=== PATIENT | male | born 1945 | race Caucasian/White ===

== ENCOUNTER → 2016-08-24 | Outpatient (RCR) | payer MEDICARE, MEDICAID ==
--- OUTSIDE RECORDS SUMMARY | 2016-05-26 12:56 | XMS REPORT | Continuity of Care Document ---
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 [id number] Ana Dinero 18 Self / Same As Patient Advance Directives Directive Response Recorded Date/Time Advance Directives No 03/11/16 9:00am Health Care Power of Poly Operator No 03/11/16 9:00am Organ Donor No 03/11/16 9:00am Resuscitation Status Full Code 03/11/16 9:00am Problems No problem information available. Medications Current Home Medications Medication Dose Units Route Directions Days/Qty Instructions Start Date Atorvastatin Calcium 40 Mg 40 Mg Oral Daily 03/10/16 Ramipril 2.5 Mg 2.5 Mg Oral Daily 03/10/16 Warfarin Sodium 3 Mg 3 Mg Oral Daily 03/10/16 Digoxin 125 Mcg 125 Mcg Oral Daily 03/10/16 Metoprolol Succinate 25 Mg 25 Mg Oral Daily 03/10/16 Aspirin 81 Mg 81 Mg Oral Daily 03/10/16 Hydrocodone/Acetaminophen 1 Each 1-2 Tab Oral Every 4HRS as needed for More Severe Pain 40 03/11/16 Social History Social History Problem Response Recorded Date/Time Alcohol Use Past History 03/11/2016 9:00am Recreational Drug Use No 03/11/2016 9:00am Recent Foreign Travel No 03/11/2016 9:35am Recent Infectious Disease Exposure No 03/11/2016 9:35am Hospitalization with Isolation Denies 03/11/2016 12:52pm Sexually Transmitted Disease No 03/11/2016 9:00am HIV/AIDS No 03/11/2016 9:00am Smoking Status Current Everyday Smoker 03/11/2016 9:00am Type Used Cigars 03/11/2016 12:52pm Query Response Start Date Stop Date Smoking Status Current Everyday Smoker Hospital Discharge Instructions No hospital discharge instructions. Plan of Care Discharge Date 03/11/16 12:40pm Instructions/Education Provided ANESTHESIA INSTRUCTIONS POSTOP DR. PERSAUD-NECK SURGERY DR. PERSAUD-WOUND CARE Prescriptions See Medication Section Functional Status No functional status results. Allergies, Adverse Reactions, Alerts No known allergies. Immunizations No immunization records. Vital Signs Acute Vital Signs Vital Response Date/Time Temperature (Fahrenheit) 97.6 degrees F (97.6 - 99.5) 03/11/2016 12:40pm Temperature (Calculated Celsius) 36.01622 degrees C (36.4 - 37.5) 03/11/2016 12:40pm Temperature Source Temporal 03/11/2016 12:40pm Pulse Rate (adult) 79 bpm (60 - 90) 03/11/2016 12:40pm Respiratory Rate 18 bpm (12 - 24) 03/11/2016 12:40pm O2 Sat by Pulse Oximetry 94 % (88 - 100) 03/11/2016 12:40pm Blood Pressure 96/61 mm Hg 03/11/2016 12:40pm Blood Pressure Mean 77 mm Hg 03/11/2016 9:00am Blood Pressure 96/61 mm Hg 03/11/2016 12:40pm Pain Numeric Pain Scale 0-No Pain 03/11/2016 12:40pm Pain Intensity 0 03/11/2016 12:40pm Height (Feet) 5 feet 03/11/2016 9:00am Height (Inches) 7.00 inches 03/11/2016 9:00am Height (Calculated Centimeters) 170.282209 cm 03/11/2016 9:00am Weight (Pounds) 150 pounds 03/11/2016 9:00am Weight (Ounces) 0.0 oz 03/11/2016 9:00am Weight (Calculated Grams) 89759.856 gm 03/11/2016 9:00am Weight (Calculated Kilograms) 68.239367 kilograms 03/11/2016 9:00am Calculated BMI 23.5 03/11/2016 9:00am Results Pending Laboratory Results Test Name Collection Date/Time Procedures Procedure Status Date Provider(s) Excision of lesion Completed 03/11/16 JASPER PERSAUD MD Tracing only of electrocardiogram Active 03/10/16 JASPER PERSAUD MD Encounters Encounter Location Arrival/Admit Date Discharge/Depart Date Attending Provider Departed [facility] 03/11/16 8:47am 12:40pm JASPER PERSAUD MD Departed Clinic [facility] 03/10/16 12:53pm 03/10/16 2: 43pm JASPER PERSAUD MD
[2016-05-26 13:33] LABS: BASOPHILS % (AUTO) 0 % (0-10); EOSINOPHILS # (AUTO) 0.1 10^3/uL (0.0-0.3); EOSINOPHILS % (AUTO) 1 % (0-10); LYMPHOCYTES # (AUTO) 0.6 X 10^3 (1.0-4.0); LYMPHOCYTES % (AUTO) 14 % (12-44); MEAN CORPUSCULAR HEMOGLOBIN 27 PG (25-34); MEAN CORPUSCULAR HGB CONC 32 G/DL (32-36); MEAN CORPUSCULAR VOLUME 84 FL (80-99); MEAN PLATELET VOLUME 9.9 FL (7.4-10.4); MONOCYTES # (AUTO) 0.9 X 10^3 (0.0-1.0); MONOCYTES % (AUTO) 21 % (0-12); NEUTROPHILS # (AUTO) 2.9 X 10^3 (1.8-7.8); NEUTROPHILS % (AUTO) 64 % (42-75); PLATELET COUNT 193 10^3/uL (130-400); RED BLOOD COUNT 4.06 10^6/uL (4.35-5.85); RED CELL DISTRIBUTION WIDTH 17.5 % (10.0-14.5); WHITE BLOOD COUNT 4.6 10^3/uL (4.3-11.0)
[2016-05-26 13:59] LABS: ALANINE AMINOTRANSFERASE 10 U/L (0-55); ALBUMIN 3.6 G/DL (3.2-4.5); ANION GAP 12 MMOL/L (5-14); ASPARTATE AMINO TRANSFERASE 17 U/L (5-34); BILIRUBIN,TOTAL 0.3 MG/DL (0.1-1.0); BLOOD UREA NITROGEN 24 MG/DL (7-18); BUN/CREATININE RATIO 22; CALCIUM 9.1 MG/DL (8.5-10.1); CARBON DIOXIDE 21 MMOL/L (21-32); CHLORIDE 107 MMOL/L (98-107); GFR ESTIMATED > 60; GLUCOSE 121 MG/DL (70-105); LACTATE DEHYDROGENASE 271 U/L (125-220); POTASSIUM 4.2 MMOL/L (3.6-5.0); SODIUM 140 MMOL/L (135-145); TOTAL PROTEIN 6.4 G/DL (6.4-8.2); URIC ACID 7.3 MG/DL (2.6-7.2)
[2016-06-01 11:54] LABS: BASOPHILS % (AUTO) 0 % (0-10); EOSINOPHILS % (AUTO) 1 % (0-10); LYMPHOCYTES # (AUTO) 0.2 X 10^3 (1.0-4.0); LYMPHOCYTES % (AUTO) 5 % (12-44); MEAN CORPUSCULAR HEMOGLOBIN 27 PG (25-34); MEAN CORPUSCULAR HGB CONC 32 G/DL (32-36); MEAN CORPUSCULAR VOLUME 84 FL (80-99); MEAN PLATELET VOLUME 9.7 FL (7.4-10.4); MONOCYTES # (AUTO) 0.5 X 10^3 (0.0-1.0); MONOCYTES % (AUTO) 10 % (0-12); NEUTROPHILS # (AUTO) 4.2 X 10^3 (1.8-7.8); NEUTROPHILS % (AUTO) 84 % (42-75); PLATELET COUNT 170 10^3/uL (130-400); RED BLOOD COUNT 3.79 10^6/uL (4.35-5.85); RED CELL DISTRIBUTION WIDTH 17.6 % (10.0-14.5)
[2016-06-01 12:26] LABS: ALANINE AMINOTRANSFERASE 14 U/L (0-55); ALBUMIN 3.1 G/DL (3.2-4.5); ANION GAP 11 MMOL/L (5-14); ASPARTATE AMINO TRANSFERASE 20 U/L (5-34); BILIRUBIN,TOTAL 0.3 MG/DL (0.1-1.0); BLOOD UREA NITROGEN 16 MG/DL (7-18); BUN/CREATININE RATIO 19; CALCIUM 8.3 MG/DL (8.5-10.1); CARBON DIOXIDE 22 MMOL/L (21-32); CHLORIDE 107 MMOL/L (98-107); CREATININE SERUM 0.84 MG/DL (0.60-1.30); GFR ESTIMATED > 60; GLUCOSE 125 MG/DL (70-105); MAGNESIUM 1.7 MG/DL (1.8-2.4); POTASSIUM 3.9 MMOL/L (3.6-5.0); SODIUM 140 MMOL/L (135-145); TOTAL PROTEIN 5.4 G/DL (6.4-8.2); URIC ACID 6.2 MG/DL (2.6-7.2)
[2016-06-01 14:52] LABS: %SAT TOTAL IRON BINDING CAPIC 9 % (15-50); TIBC 194 ug/dL (280-380)
[2016-06-01 15:16] LABS: UIBC 176 ug/dL (55-450)
[2016-06-02 08:06] LABS: FERRITIN 396 ng/mL (25-300)
[2016-06-09 15:07] LABS: BASOPHILS % (AUTO) 0 % (0-10); EOSINOPHILS % (AUTO) 1 % (0-10); LYMPHOCYTES # (AUTO) 0.4 X 10^3 (1.0-4.0); LYMPHOCYTES % (AUTO) 11 % (12-44); MEAN CORPUSCULAR HEMOGLOBIN 27 PG (25-34); MEAN CORPUSCULAR HGB CONC 32 G/DL (32-36); MEAN CORPUSCULAR VOLUME 84 FL (80-99); MEAN PLATELET VOLUME 9.9 FL (7.4-10.4); MONOCYTES # (AUTO) 0.7 X 10^3 (0.0-1.0); MONOCYTES % (AUTO) 24 % (0-12); NEUTROPHILS % (AUTO) 64 % (42-75); PLATELET COUNT 187 10^3/uL (130-400); RED BLOOD COUNT 3.97 10^6/uL (4.35-5.85); RED CELL DISTRIBUTION WIDTH 18.2 % (10.0-14.5); WHITE BLOOD COUNT 3.1 10^3/uL (4.3-11.0)
[2016-06-09 16:04] LABS: ALANINE AMINOTRANSFERASE 13 U/L (0-55); ALBUMIN 3.4 G/DL (3.2-4.5); ANION GAP 6 MMOL/L (5-14); ASPARTATE AMINO TRANSFERASE 18 U/L (5-34); BILIRUBIN,TOTAL 0.3 MG/DL (0.1-1.0); BLOOD UREA NITROGEN 14 MG/DL (7-18); BUN/CREATININE RATIO 15; CALCIUM 8.9 MG/DL (8.5-10.1); CARBON DIOXIDE 30 MMOL/L (21-32); CHLORIDE 105 MMOL/L (98-107); CREATININE SERUM 0.95 MG/DL (0.60-1.30); GFR ESTIMATED > 60; GLUCOSE 120 MG/DL (70-105); MAGNESIUM 1.7 MG/DL (1.8-2.4); POTASSIUM 4.2 MMOL/L (3.6-5.0); SODIUM 141 MMOL/L (135-145); TOTAL PROTEIN 5.9 G/DL (6.4-8.2); URIC ACID 5.6 MG/DL (2.6-7.2)
[2016-06-16 09:07] LABS: BASOPHILS % (AUTO) 1 % (0-10); EOSINOPHILS # (AUTO) 0.1 10^3/uL (0.0-0.3); EOSINOPHILS % (AUTO) 1 % (0-10); LYMPHOCYTES # (AUTO) 0.8 X 10^3 (1.0-4.0); LYMPHOCYTES % (AUTO) 19 % (12-44); MEAN CORPUSCULAR HEMOGLOBIN 27 PG (25-34); MEAN CORPUSCULAR HGB CONC 32 G/DL (32-36); MEAN CORPUSCULAR VOLUME 83 FL (80-99); MEAN PLATELET VOLUME 9.7 FL (7.4-10.4); MONOCYTES % (AUTO) 23 % (0-12); NEUTROPHILS # (AUTO) 2.4 X 10^3 (1.8-7.8); NEUTROPHILS % (AUTO) 56 % (42-75); PLATELET COUNT 188 10^3/uL (130-400); RED BLOOD COUNT 4.37 10^6/uL (4.35-5.85); WHITE BLOOD COUNT 4.2 10^3/uL (4.3-11.0)
[2016-06-16 09:42] LABS: ALANINE AMINOTRANSFERASE 13 U/L (0-55); ALBUMIN 3.6 G/DL (3.2-4.5); ANION GAP 8 MMOL/L (5-14); ASPARTATE AMINO TRANSFERASE 19 U/L (5-34); BILIRUBIN,TOTAL 0.3 MG/DL (0.1-1.0); BLOOD UREA NITROGEN 12 MG/DL (7-18); BUN/CREATININE RATIO 14; CALCIUM 9.4 MG/DL (8.5-10.1); CARBON DIOXIDE 28 MMOL/L (21-32); CHLORIDE 104 MMOL/L (98-107); CREATININE SERUM 0.88 MG/DL (0.60-1.30); GFR ESTIMATED > 60; GLUCOSE 114 MG/DL (70-105); MAGNESIUM 1.9 MG/DL (1.8-2.4); POTASSIUM 4.8 MMOL/L (3.6-5.0); SODIUM 140 MMOL/L (135-145); TOTAL PROTEIN 6.3 G/DL (6.4-8.2); URIC ACID 5.2 MG/DL (2.6-7.2)
[2016-06-23 13:04] LABS: BASOPHILS % (AUTO) 0 % (0-10); EOSINOPHILS # (AUTO) 0.1 10^3/uL (0.0-0.3); EOSINOPHILS % (AUTO) 1 % (0-10); LYMPHOCYTES % (AUTO) 28 % (12-44); MEAN CORPUSCULAR HEMOGLOBIN 27 PG (25-34); MEAN CORPUSCULAR HGB CONC 33 G/DL (32-36); MEAN CORPUSCULAR VOLUME 83 FL (80-99); MEAN PLATELET VOLUME 9.5 FL (7.4-10.4); MONOCYTES # (AUTO) 1.1 X 10^3 (0.0-1.0); MONOCYTES % (AUTO) 15 % (0-12); NEUTROPHILS # (AUTO) 4.2 X 10^3 (1.8-7.8); NEUTROPHILS % (AUTO) 57 % (42-75); PLATELET COUNT 192 10^3/uL (130-400); RED BLOOD COUNT 4.58 10^6/uL (4.35-5.85); RED CELL DISTRIBUTION WIDTH 18.2 % (10.0-14.5); WHITE BLOOD COUNT 7.3 10^3/uL (4.3-11.0)
[2016-06-23 13:28] LABS: ALANINE AMINOTRANSFERASE 12 U/L (0-55); ALBUMIN 3.4 G/DL (3.2-4.5); ANION GAP 6 MMOL/L (5-14); ASPARTATE AMINO TRANSFERASE 18 U/L (5-34); BILIRUBIN,TOTAL 0.3 MG/DL (0.1-1.0); BLOOD UREA NITROGEN 14 MG/DL (7-18); BUN/CREATININE RATIO 15; CALCIUM 8.8 MG/DL (8.5-10.1); CARBON DIOXIDE 28 MMOL/L (21-32); CHLORIDE 105 MMOL/L (98-107); CREATININE SERUM 0.92 MG/DL (0.60-1.30); GFR ESTIMATED > 60; GLUCOSE 135 MG/DL (70-105); POTASSIUM 4.2 MMOL/L (3.6-5.0); SODIUM 139 MMOL/L (135-145); TOTAL PROTEIN 6.2 G/DL (6.4-8.2); URIC ACID 5.1 MG/DL (2.6-7.2)
[2016-06-30 10:14] LABS: BASOPHILS % (AUTO) 1 % (0-10); EOSINOPHILS # (AUTO) 0.1 10^3/uL (0.0-0.3); EOSINOPHILS % (AUTO) 1 % (0-10); LYMPHOCYTES # (AUTO) 1.1 X 10^3 (1.0-4.0); LYMPHOCYTES % (AUTO) 23 % (12-44); MEAN CORPUSCULAR HEMOGLOBIN 27 PG (25-34); MEAN CORPUSCULAR HGB CONC 32 G/DL (32-36); MEAN CORPUSCULAR VOLUME 83 FL (80-99); MEAN PLATELET VOLUME 9.4 FL (7.4-10.4); MONOCYTES # (AUTO) 0.7 X 10^3 (0.0-1.0); MONOCYTES % (AUTO) 16 % (0-12); NEUTROPHILS # (AUTO) 2.8 X 10^3 (1.8-7.8); NEUTROPHILS % (AUTO) 60 % (42-75); PLATELET COUNT 225 10^3/uL (130-400); RED CELL DISTRIBUTION WIDTH 17.9 % (10.0-14.5); WHITE BLOOD COUNT 4.8 10^3/uL (4.3-11.0)
[2016-06-30 10:59] LABS: ALANINE AMINOTRANSFERASE 16 U/L (0-55); ALBUMIN 3.6 G/DL (3.2-4.5); ANION GAP 9 MMOL/L (5-14); ASPARTATE AMINO TRANSFERASE 21 U/L (5-34); BILIRUBIN,TOTAL 0.4 MG/DL (0.1-1.0); BLOOD UREA NITROGEN 13 MG/DL (7-18); BUN/CREATININE RATIO 14; CARBON DIOXIDE 27 MMOL/L (21-32); CHLORIDE 104 MMOL/L (98-107); CREATININE SERUM 0.92 MG/DL (0.60-1.30); GFR ESTIMATED > 60; GLUCOSE 120 MG/DL (70-105); POTASSIUM 3.8 MMOL/L (3.6-5.0); SODIUM 140 MMOL/L (135-145); TOTAL PROTEIN 6.6 G/DL (6.4-8.2)
[2016-07-08 09:03] LABS: BASOPHILS % (AUTO) 0 % (0-10); EOSINOPHILS % (AUTO) 0 % (0-10); LYMPHOCYTES # (AUTO) 1.5 X 10^3 (1.0-4.0); LYMPHOCYTES % (AUTO) 26 % (12-44); MEAN CORPUSCULAR HEMOGLOBIN 27 PG (25-34); MEAN CORPUSCULAR HGB CONC 33 G/DL (32-36); MEAN CORPUSCULAR VOLUME 82 FL (80-99); MEAN PLATELET VOLUME 10.3 FL (7.4-10.4); MONOCYTES # (AUTO) 1.6 X 10^3 (0.0-1.0); MONOCYTES % (AUTO) 29 % (0-12); NEUTROPHILS # (AUTO) 2.5 X 10^3 (1.8-7.8); NEUTROPHILS % (AUTO) 45 % (42-75); PLATELET COUNT 184 10^3/uL (130-400); RED BLOOD COUNT 4.21 10^6/uL (4.35-5.85); RED CELL DISTRIBUTION WIDTH 17.3 % (10.0-14.5); WHITE BLOOD COUNT 5.5 10^3/uL (4.3-11.0)
[2016-07-08 09:36] LABS: ALANINE AMINOTRANSFERASE 7 U/L (0-55); ALBUMIN 3.3 G/DL (3.2-4.5); ANION GAP 12 MMOL/L (5-14); ASPARTATE AMINO TRANSFERASE 16 U/L (5-34); BILIRUBIN,TOTAL 0.9 MG/DL (0.1-1.0); BLOOD UREA NITROGEN 20 MG/DL (7-18); BUN/CREATININE RATIO 20; CALCIUM 8.9 MG/DL (8.5-10.1); CARBON DIOXIDE 22 MMOL/L (21-32); CHLORIDE 102 MMOL/L (98-107); GFR ESTIMATED > 60; GLUCOSE 100 MG/DL (70-105); SODIUM 136 MMOL/L (135-145); TOTAL PROTEIN 6.2 G/DL (6.4-8.2)
[2016-07-14 09:36] LABS: BASOPHILS % (AUTO) 0 % (0-10); EOSINOPHILS % (AUTO) 1 % (0-10); LYMPHOCYTES # (AUTO) 1.6 X 10^3 (1.0-4.0); LYMPHOCYTES % (AUTO) 32 % (12-44); MEAN CORPUSCULAR HEMOGLOBIN 27 PG (25-34); MEAN CORPUSCULAR HGB CONC 32 G/DL (32-36); MEAN CORPUSCULAR VOLUME 84 FL (80-99); MONOCYTES # (AUTO) 0.8 X 10^3 (0.0-1.0); MONOCYTES % (AUTO) 16 % (0-12); NEUTROPHILS # (AUTO) 2.5 X 10^3 (1.8-7.8); NEUTROPHILS % (AUTO) 51 % (42-75); PLATELET COUNT 228 10^3/uL (130-400); RED BLOOD COUNT 4.32 10^6/uL (4.35-5.85); RED CELL DISTRIBUTION WIDTH 17.6 % (10.0-14.5)
[2016-07-14 10:39] LABS: ALANINE AMINOTRANSFERASE 12 U/L (0-55); ALBUMIN 3.1 G/DL (3.2-4.5); ANION GAP 9 MMOL/L (5-14); ASPARTATE AMINO TRANSFERASE 22 U/L (5-34); BILIRUBIN,TOTAL 0.3 MG/DL (0.1-1.0); BLOOD UREA NITROGEN 8 MG/DL (7-18); BUN/CREATININE RATIO 10; CARBON DIOXIDE 25 MMOL/L (21-32); CHLORIDE 107 MMOL/L (98-107); CREATININE SERUM 0.82 MG/DL (0.60-1.30); GFR ESTIMATED > 60; GLUCOSE 109 MG/DL (70-105); POTASSIUM 4.1 MMOL/L (3.6-5.0); SODIUM 141 MMOL/L (135-145); TOTAL PROTEIN 5.6 G/DL (6.4-8.2)
[2016-07-21 13:11] LABS: BASOPHILS % (AUTO) 0 % (0-10); EOSINOPHILS # (AUTO) 0.1 10^3/uL (0.0-0.3); EOSINOPHILS % (AUTO) 1 % (0-10); LYMPHOCYTES % (AUTO) 22 % (12-44); MEAN CORPUSCULAR HEMOGLOBIN 27 PG (25-34); MEAN CORPUSCULAR HGB CONC 32 G/DL (32-36); MEAN CORPUSCULAR VOLUME 84 FL (80-99); MEAN PLATELET VOLUME 10.1 FL (7.4-10.4); MONOCYTES % (AUTO) 11 % (0-12); NEUTROPHILS # (AUTO) 6.1 X 10^3 (1.8-7.8); NEUTROPHILS % (AUTO) 67 % (42-75); PLATELET COUNT 234 10^3/uL (130-400); RED BLOOD COUNT 4.33 10^6/uL (4.35-5.85); RED CELL DISTRIBUTION WIDTH 18.4 % (10.0-14.5); WHITE BLOOD COUNT 9.1 10^3/uL (4.3-11.0)
[2016-07-21 13:37] LABS: ALANINE AMINOTRANSFERASE 7 U/L (0-55); ALBUMIN 3.4 G/DL (3.2-4.5); ANION GAP 9 MMOL/L (5-14); ASPARTATE AMINO TRANSFERASE 17 U/L (5-34); BILIRUBIN,TOTAL 0.3 MG/DL (0.1-1.0); BLOOD UREA NITROGEN 15 MG/DL (7-18); BUN/CREATININE RATIO 17; CALCIUM 8.9 MG/DL (8.5-10.1); CARBON DIOXIDE 23 MMOL/L (21-32); CHLORIDE 104 MMOL/L (98-107); CREATININE SERUM 0.88 MG/DL (0.60-1.30); GFR ESTIMATED > 60; GLUCOSE 176 MG/DL (70-105); MAGNESIUM 1.9 MG/DL (1.8-2.4); SODIUM 136 MMOL/L (135-145); TOTAL PROTEIN 6.2 G/DL (6.4-8.2); URIC ACID 4.6 MG/DL (2.6-7.2)
[2016-07-30 09:26] LABS: BASOPHILS % (AUTO) 0 % (0-10); EOSINOPHILS # (AUTO) 0.1 10^3/uL (0.0-0.3); EOSINOPHILS % (AUTO) 2 % (0-10); LYMPHOCYTES # (AUTO) 2.4 X 10^3 (1.0-4.0); LYMPHOCYTES % (AUTO) 34 % (12-44); MEAN CORPUSCULAR HEMOGLOBIN 27 PG (25-34); MEAN CORPUSCULAR HGB CONC 32 G/DL (32-36); MEAN CORPUSCULAR VOLUME 85 FL (80-99); MEAN PLATELET VOLUME 9.4 FL (7.4-10.4); MONOCYTES % (AUTO) 14 % (0-12); NEUTROPHILS # (AUTO) 3.6 X 10^3 (1.8-7.8); NEUTROPHILS % (AUTO) 50 % (42-75); PLATELET COUNT 233 10^3/uL (130-400); RED BLOOD COUNT 4.24 10^6/uL (4.35-5.85); RED CELL DISTRIBUTION WIDTH 18.4 % (10.0-14.5); WHITE BLOOD COUNT 7.1 10^3/uL (4.3-11.0)
[2016-07-30 09:49] LABS: ALANINE AMINOTRANSFERASE < 6 U/L (0-55); ALBUMIN 3.3 G/DL (3.2-4.5); ANION GAP 10 MMOL/L (5-14); ASPARTATE AMINO TRANSFERASE 15 U/L (5-34); BILIRUBIN,TOTAL 0.3 MG/DL (0.1-1.0); BLOOD UREA NITROGEN 17 MG/DL (7-18); BUN/CREATININE RATIO 20; CALCIUM 9.2 MG/DL (8.5-10.1); CARBON DIOXIDE 25 MMOL/L (21-32); CHLORIDE 107 MMOL/L (98-107); CREATININE SERUM 0.83 MG/DL (0.60-1.30); GFR ESTIMATED > 60; GLUCOSE 105 MG/DL (70-105); LACTATE DEHYDROGENASE 294 U/L (125-220); SODIUM 142 MMOL/L (135-145); TOTAL PROTEIN 6.2 G/DL (6.4-8.2); URIC ACID 4.4 MG/DL (2.6-7.2)
[2016-08-11 10:39] LABS: BASOPHILS % (AUTO) 0 % (0-10); EOSINOPHILS # (AUTO) 0.1 10^3/uL (0.0-0.3); EOSINOPHILS % (AUTO) 2 % (0-10); LYMPHOCYTES # (AUTO) 1.2 X 10^3 (1.0-4.0); LYMPHOCYTES % (AUTO) 44 % (12-44); MEAN CORPUSCULAR HEMOGLOBIN 28 PG (25-34); MEAN CORPUSCULAR HGB CONC 33 G/DL (32-36); MEAN CORPUSCULAR VOLUME 85 FL (80-99); MEAN PLATELET VOLUME 9.7 FL (7.4-10.4); MONOCYTES # (AUTO) 1.2 X 10^3 (0.0-1.0); MONOCYTES % (AUTO) 42 % (0-12); NEUTROPHILS # (AUTO) 0.3 X 10^3 (1.8-7.8); NEUTROPHILS % (AUTO) 12 % (42-75); PLATELET COUNT 201 10^3/uL (130-400); RED BLOOD COUNT 4.02 10^6/uL (4.35-5.85); RED CELL DISTRIBUTION WIDTH 17.8 % (10.0-14.5); WHITE BLOOD COUNT 2.8 10^3/uL (4.3-11.0)
[2016-08-11 11:29] LABS: ALANINE AMINOTRANSFERASE 8 U/L (0-55); ALBUMIN 3.3 G/DL (3.2-4.5); ANION GAP 7 MMOL/L (5-14); ASPARTATE AMINO TRANSFERASE 15 U/L (5-34); BILIRUBIN,TOTAL 0.6 MG/DL (0.1-1.0); BLOOD UREA NITROGEN 17 MG/DL (7-18); BUN/CREATININE RATIO 19; CALCIUM 9.2 MG/DL (8.5-10.1); CARBON DIOXIDE 30 MMOL/L (21-32); CHLORIDE 104 MMOL/L (98-107); CREATININE SERUM 0.91 MG/DL (0.60-1.30); GFR ESTIMATED > 60; GLUCOSE 119 MG/DL (70-105); LACTATE DEHYDROGENASE 312 U/L (125-220); POTASSIUM 3.9 MMOL/L (3.6-5.0); SODIUM 141 MMOL/L (135-145); URIC ACID 2.9 MG/DL (2.6-7.2)
[2016-08-18 10:17] LABS: BASOPHILS % (AUTO) 0 % (0-10); EOSINOPHILS # (AUTO) 0.1 10^3/uL (0.0-0.3); EOSINOPHILS % (AUTO) 1 % (0-10); LYMPHOCYTES # (AUTO) 1.3 X 10^3 (1.0-4.0); LYMPHOCYTES % (AUTO) 17 % (12-44); MEAN CORPUSCULAR HEMOGLOBIN 27 PG (25-34); MEAN CORPUSCULAR HGB CONC 32 G/DL (32-36); MEAN CORPUSCULAR VOLUME 85 FL (80-99); MEAN PLATELET VOLUME 9.7 FL (7.4-10.4); MONOCYTES # (AUTO) 1.1 X 10^3 (0.0-1.0); MONOCYTES % (AUTO) 13 % (0-12); NEUTROPHILS # (AUTO) 5.4 X 10^3 (1.8-7.8); NEUTROPHILS % (AUTO) 69 % (42-75); PLATELET COUNT 235 10^3/uL (130-400); RED BLOOD COUNT 4.26 10^6/uL (4.35-5.85); RED CELL DISTRIBUTION WIDTH 17.6 % (10.0-14.5); WHITE BLOOD COUNT 7.9 10^3/uL (4.3-11.0)
[2016-08-18 10:49] LABS: ALANINE AMINOTRANSFERASE 7 U/L (0-55); ALBUMIN 3.3 G/DL (3.2-4.5); ANION GAP 9 MMOL/L (5-14); ASPARTATE AMINO TRANSFERASE 22 U/L (5-34); BILIRUBIN,TOTAL 0.3 MG/DL (0.1-1.0); BLOOD UREA NITROGEN 21 MG/DL (7-18); BUN/CREATININE RATIO 24; CARBON DIOXIDE 26 MMOL/L (21-32); CHLORIDE 105 MMOL/L (98-107); CREATININE SERUM 0.87 MG/DL (0.60-1.30); GFR ESTIMATED > 60; GLUCOSE 100 MG/DL (70-105); LACTATE DEHYDROGENASE 461 U/L (125-220); SODIUM 140 MMOL/L (135-145); TOTAL PROTEIN 5.9 G/DL (6.4-8.2); URIC ACID 2.9 MG/DL (2.6-7.2)
[~2016-08-24] VITALS: Ht 170.2 cm; Wt 61.7 kg
[~2016-08-24] MED LIST: ACETAMINOPHEN 325 MG TAB (TYLENOL) CANCER CTR PO PRN; ACETAMINOPHEN 500 MG TAB (TYLENOL) CANCER CTR PO PRN; ACYC200C PO; ALLO300T2 PO; ASPI-586 PO; ATOR40TA PO; BENDAMUSTINE HCL 150 MG in NS (IVPB) CANCER CENTER 50 ML IV SCH; BENDAMUSTINE HCL 160 MG in NS (IVPB) CANCER CENTER 50 ML IV SCH; CHEMO PO; CYCLOPHOSPHAMIDE INJECTION 1,000 MG in NS (IVPB) CANCER CENTER 250 ML IV SCH; DIGO125T PO; DIGO125T18 PO; FAMO20TA45 PO; FAMOTIDINE 20MG/2ML IV (CANCER CTR) IV SCH; FLUC200T5 PO; FLUCONAZOLE 100 MG/50 ML 50 ML IV ONE; FLUCONAZOLE 100 MG/50 ML 50 ML IV SCH; HYDR-3812 PO; HYDR-3820 PO; MEPERIDINE (DEMEROL) INJ 50 MG/ML CANCER CTR IV PRN; METO-270 PO; NS (IVPB) CANCER CENTER 250 ML ONE; NS IV 1000 ML (CANCER CTR) IV SCH; OMEP20CA12 PO; OMEP20TA7 PO; ONDANSETRON MDV (CANCER CENTER 16 MG, DEXAMETHASONE PF INJ (CANCER C 12 MG in NS (IVPB)... IV SCH; OXYC5SOL19 PO; PALONOSETRON HCL 0.25 MG, DEXAMETHASONE PF INJ (CANCER C 12 MG in NS (IVPB) CANCER CENT... IV PRN; RAMI2.5C PO; SODIUM CHLORIDE IV SCH; WARF3TAB6 PO; [UNRECOGNIZED DRUG - OTHER] IV SCH; [UNRECOGNIZED DRUG - OTHER] IV SCH; cefTRIAXone 2,000 MG/NS 50 ML IVPB (CANCER CTR) IV ONE; diphenhydrAMINE 25 MG TAB (BENADRYL) CANCER CENTER PO SCH; riTUXimab 500 MG, riTUXimab FOR IV INJ CONC 100 MG in NS (IVPB) CANCER CENTER ONLY 140 ML IV SCH; riTUXimab 500 MG, riTUXimab FOR IV INJ CONC 100 MG in NS (IVPB) CANCER CENTER ONLY 150 ML IV SCH; riTUXimab 500 MG, riTUXimab FOR IV INJ CONC 200 MG in NS (IVPB) CANCER CENTER ONLY 150 ML IV SCH
== END | disposition home or self-care (01) ==
LOC: ONC 05-26 12:52
PROVIDERS: ATTEND Internal Medicine Hematology & Oncology
DX: Z51.0 Encounter for antineoplastic radiation therapy (principal); Z51.11 Encounter for antineoplastic chemotherapy; C83.11 Mantle cell lymphoma, lymph nodes of head, face, and neck; C44.320 Squamous cell carcinoma of skin of unspecified parts of face; D63.0 Anemia in neoplastic disease; F17.210 Nicotine dependence, cigarettes, uncomplicated; I25.10 Atherosclerotic heart disease of native coronary artery without angina pectoris; Z95.5 Presence of coronary angioplasty implant and graft; Z79.899 Other long term (current) drug therapy
CPT/HCPCS: 36415; 36591; 77300; 77301; 77332; 77334; 77338; 77470; 80053; 82728; 83540; 83615; 83735; 84550; 85025; 96361; 96365; 96366; 96367; 96375; 96409; 96411; 96413; 96417; 99213; 99215

== ENCOUNTER 2016-08-26 10:08 | Inpatient (IN) | payer MEDICARE, MEDICAID ==
[~2016-08-26] VITALS: Ht 170.2 cm; Wt 60.8 kg
[~2016-08-26 10:08] MED LIST changes: -ACETAMINOPHEN 325 MG TAB (TYLENOL) CANCER CTR PO PRN; -ACETAMINOPHEN 500 MG TAB (TYLENOL) CANCER CTR PO PRN; -ACYC200C PO; -BENDAMUSTINE HCL 150 MG in NS (IVPB) CANCER CENTER 50 ML IV SCH; -BENDAMUSTINE HCL 160 MG in NS (IVPB) CANCER CENTER 50 ML IV SCH; -CHEMO PO; -CYCLOPHOSPHAMIDE INJECTION 1,000 MG in NS (IVPB) CANCER CENTER 250 ML IV SCH; -FAMOTIDINE 20MG/2ML IV (CANCER CTR) IV SCH; -FLUC200T5 PO; -FLUCONAZOLE 100 MG/50 ML 50 ML IV ONE; -FLUCONAZOLE 100 MG/50 ML 50 ML IV SCH; -HYDR-3820 PO; -MEPERIDINE (DEMEROL) INJ 50 MG/ML CANCER CTR IV PRN; -NS (IVPB) CANCER CENTER 250 ML ONE; -NS IV 1000 ML (CANCER CTR) IV SCH; -OMEP20CA12 PO; -ONDANSETRON MDV (CANCER CENTER 16 MG, DEXAMETHASONE PF INJ (CANCER C 12 MG in NS (IVPB)... IV SCH; -OXYC5SOL19 PO; -PALONOSETRON HCL 0.25 MG, DEXAMETHASONE PF INJ (CANCER C 12 MG in NS (IVPB) CANCER CENT... IV PRN; -SODIUM CHLORIDE IV SCH; -[UNRECOGNIZED DRUG - OTHER] IV SCH; -[UNRECOGNIZED DRUG - OTHER] IV SCH; -cefTRIAXone 2,000 MG/NS 50 ML IVPB (CANCER CTR) IV ONE; -diphenhydrAMINE 25 MG TAB (BENADRYL) CANCER CENTER PO SCH; -riTUXimab 500 MG, riTUXimab FOR IV INJ CONC 100 MG in NS (IVPB) CANCER CENTER ONLY 140 ML IV SCH; -riTUXimab 500 MG, riTUXimab FOR IV INJ CONC 100 MG in NS (IVPB) CANCER CENTER ONLY 150 ML IV SCH; -riTUXimab 500 MG, riTUXimab FOR IV INJ CONC 200 MG in NS (IVPB) CANCER CENTER ONLY 150 ML IV SCH
--- OUTSIDE RECORDS SUMMARY | 2016-08-26 10:16 | XMS REPORT | Continuity of Care Document ---
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 Training Name Role Phone SUMAYA WING MD PCP Insurance Providers Payer Name Policy Number Subscriber Name Relationship [employer]ps [employer] [id number] Ana Dinero 18 Self / Same As Patient [facility] [id number] Ana Dinero 16 Self / Same As Patient Advance Directives Directive Response Recorded Date/Time Advance Directives No 03/11/16 9:00am Health Care Power of Air And Water Filler No 03/11/16 9:00am Organ Donor No 03/11/16 [...] - 99.5) 03/11/2016 12:40pm Temperature (Calculated Celsius) 36.52884 degrees C (36.4 - 37.5) 03/11/2016 12:40pm [...] 7.00 inches 03/11/2016 9:00am Height (Calculated Centimeters) 170.937101 cm 03/11/2016 9:00am Weight (Pounds) 150 pounds 03/11/2016 9:00am Weight (Ounces) 0.0 oz 03/11/2016 9:00am Weight (Calculated Grams) 19870.856 gm 03/11/2016 9:00am Weight (Calculated Kilograms) 68.508130 kilograms 03/11/2016 9:00am Calculated BMI 23.5 03/11/2016 9:00am Results Pending Laboratory Results Test Name Collection Date/Time Procedures Procedure Status Date Provider(s) Excision of lesion Completed 03/11/16 JASPER PERSAUD MD Tracing only of electrocardiogram Active 03/10/16 JASPER PERSAUD MD Encounters Encounter Location Arrival/Admit Date Discharge/Depart Date Attending Provider Departed [facility] 03/11/16 8:47am 12:40pm JASPER PERSAUD MD Departed Clinic [facility] 03/10/16 12:53pm 03/10/16 2: 43pm JASPER PERSAUD MD
[2016-08-26 11:00] LABS: BASOPHILS % (AUTO) 0 % (0-10); EOSINOPHILS % (AUTO) 0 % (0-10); LYMPHOCYTES # (AUTO) 1.5 X 10^3 (1.0-4.0); LYMPHOCYTES % (AUTO) 16 % (12-44); MEAN CORPUSCULAR HEMOGLOBIN 28 PG (25-34); MEAN CORPUSCULAR HGB CONC 33 G/DL (32-36); MEAN CORPUSCULAR VOLUME 86 FL (80-99); MEAN PLATELET VOLUME 10.2 FL (7.4-10.4); MONOCYTES # (AUTO) 0.8 X 10^3 (0.0-1.0); MONOCYTES % (AUTO) 9 % (0-12); NEUTROPHILS % (AUTO) 75 % (42-75); PLATELET COUNT 186 10^3/uL (130-400); RED BLOOD COUNT 3.79 10^6/uL (4.35-5.85); RED CELL DISTRIBUTION WIDTH 17.8 % (10.0-14.5); WHITE BLOOD COUNT 9.3 10^3/uL (4.3-11.0)
--- NOTE | 2016-08-26 11:15 | ED General ---
General Chief Complaint: General Problems/Pain Stated Complaint: RADIATION TREATMENT/THROAT SWELLING Nursing Triage Note: AMBULATED TO ROOM 08M WITH COMPLAINTS OF THROAT SWELLING ET STATES IT IS HARD TO DRINK AND BREATHE. STATES HE FEELS LIKE HE IS GETTING DEHYDRATED. STARTED ON RADIATION YESTERDAY. Nursing Sepsis Screen: No Definite Risk Source of Information: Patient Exam Limitations: No Limitations, Intoxication History of Present Illness Time Seen by Provider: 10:58 Initial Comments The patient is a 71-year-old white male who presents with a complaint of inability to swallow. He reports this b has been an increasing problem over the last month. He is been being treated for a mantle cell lymphoma. Previously he had been receiving chemotherapy with Dr. Vero MD as his oncologist. Yesterday he received his first dose of radiation to the area yesterday. He reported he was awake all night with pain. He is unable to swallow and has lost 40 pounds during this treatment program. He called the cancer center this morning with these complaints and was referred to the emergency room Associated Systoms: Loss of Appetite Malaise Weakness Allergies and Home Medications Allergies Coded Allergies: No Known Drug Allergies (Unverified , 07/23/16) Home Medications Aspirin 81 Mg Tablet.dr 81 MG PO DAILY (Reported) Digoxin 125 Mcg Tablet 125 MCG PO DAILY (Reported) Hydrocodone/Acetaminophen 1 Each Tablet #30 1-2 TAB PO 4-6HR PRN PRN PAIN Prescribed by: ALLYSSA FERGUSON on 07/26/16 1337 Omeprazole 20 Mg Tablet.dr 20 MG PO DAILY (Reported) Constitutional: no symptoms reported EENTM: hoarseness mouth pain mouth swelling throat pain throat swelling Respiratory: no symptoms reported Cardiovascular: no symptoms reported Gastrointestinal: dysphagia nausea Genitourinary: no symptoms reported Musculoskeletal: no symptoms reported Skin: no symptoms reported Psychiatric/Neurological: Depressed Hematologic/Lymphatic: See HPI Immunological/Allergic: see HPI Past Nqavezs-Vdxpti-Wnmqjv Hx Patient Social History Type Used: Cigars, Cigarettes Recent Foreign Travel: No Contact w/Someone Who Travel: No Recent Infectious Disease Expo: No Recent Hopitalizations: No Immunizations Up To Date Tetanus Booster (TDap): Less than 5yrs Seasonal Allergies Seasonal Allergies: No Surgeries HX Surgeries: Yes (SKIN CANCERS REMOVED, STENTS IN HEART x2, IN LEFT ARM x1, STENT IN ABDOMEN) Respiratory Hx Respiratory Disorders: Yes (RECENT SOB) Cardiovascular Hx Cardiac Disorders: Yes ( 2 STENTS IN HEART, A-FIB, CAD) Neurological Hx Neurological Disorders: Yes (POLYNEUROPATHY) Reproductive System Hx Reproductive Disorders: No Sexually Transmitted Disease: No HIV/AIDS: No Genitourinary Hx Genitourinary Disorders: No Gastrointestinal Hx Gastrointestinal Disorders: Yes Gastrointestinal Disorders: Gastroesophageal Reflux Musculoskeletal Hx Musculoskeletal Disorders: Yes Musculoskeletal Disorders: Arthritis Endocrine Hx Endocrine Disorders: No HEENT HX ENT Disorders: Yes (GLASSES, RIGHT EYE CATARCT) HEENT Disorders: Cataract Loss of Vision: Denies Hearing Impairment: Hard of Hearing Cancer Hx Cancer: Yes (MANTLE CELL LYMPHOMA, NON HODGKINS) Cancer: Skin, Lymphoma Psychosocial Hx Psychiatric Problems: Yes Behavioral Health Disorders: Sleep Difficulties Integumentary HX Skin/Integumentary Disorder: Yes (04-07-16 - RASH ON BACK - CHEMO ON THE 10TH ) Skin/Integumentary Disorders: Recent Skin Changes Blood Transfusions Hx Blood Disorders: No Adverse Reaction to a Blood Tr: No Family Medical History Family Medial History: Alcoholism G8 BROTHER Alzheimer's disease 19 MOTHER Aphasia Arthritis 19 FATHER 19 MOTHER G8 BROTHER Cardiovascular disease 19 FATHER 19 MOTHER G8 BROTHER G8 BROTHER Completed stroke 19 MOTHER Coronary thrombosis G8 BROTHER Deafness or hearing loss G8 BROTHER G8 BROTHER Glaucoma G8 BROTHER Myocardial infarction 19 FATHER Visual disorder 19 MOTHER Physical Exam Vital Signs Vital Sign - Last 12Hours 08/26/16 10:17 Temp 96.3 Pulse 65 Resp 18 B/P 146/69 Pulse Ox 98 Capillary Refill : Less Than 3 Seconds General Appearance: Moderate Distress Eyes: Bilateral Eye Normal Inspection HEENT: Other (the tongue is leathery cracked and dry with brown discoloration. There is a large mass intruding on the posterior pharynx from the left to the uvula. There is palpable tumor externally at the angle of the mandible to a sub- auricular location) Neck: Limited Range of Motion Respiratory: Decreased Breath Sounds Cardiovascular: Regular Rate, Rhythm No Edema No Gallop No JVD No Murmur Normal Peripheral Pulses Gastrointestinal: Other Back: Normal Inspection No CVA Tenderness No Vertebral Tenderness Extremity: Normal Capillary Refill Normal Inspection Normal Range of Motion Non Tender No Calf Tenderness No Pedal Edema Neurologic/Psychiatric: Alert Oriented x3 No Motor/Sensory Deficits Normal Mood/Affect Progress/Results/Core Measures Results/Orders Lab Results Laboratory Tests Test 1/5/17 10:50 Range/Units Alanine Aminotransferase (ALT/SGPT) 9 0-55 U/L Albumin 3.3 3.2-4.5 G/DL Alkaline Phosphatase 57 40-136 U/L Anion Gap 11 5-14 MMOL/L Aspartate Amino Transf (AST/SGOT) 21 5-34 U/L BUN/Creatinine Ratio 23 Basophils # (Auto) 0.0 0.0-0.1 10^3/uL Basophils (%) (Auto) 0 0-10 % Blood Urea Nitrogen 17 7-18 MG/DL Calcium Level 9.1 8.5-10.1 MG/DL Carbon Dioxide Level 26 21-32 MMOL/L Chloride Level 102 98-107 MMOL/L Creatinine 0.75 0.60-1.30 MG/DL Eosinophils # (Auto) 0.0 0.0-0.3 10^3/uL Eosinophils (%) (Auto) 0 0-10 % Estimat Glomerular Filtration Rate > 60 Glucose Level 98 70-105 MG/DL Hematocrit 33 L 40-54 % Hemoglobin 10.6 L 13.3-17.7 G/DL Lymphocytes # (Auto) 1.5 1.0-4.0 X 10^3 Lymphocytes (%) (Auto) 16 12-44 % Mean Corpuscular Hemoglobin 28 25-34 PG Mean Corpuscular Hemoglobin Concent 33 32-36 G/DL Mean Corpuscular Volume 86 80-99 FL Mean Platelet Volume 10.2 7.4-10.4 FL Monocytes # (Auto) 0.8 0.0-1.0 X 10^3 Monocytes (%) (Auto) 9 0-12 % Neutrophils # (Auto) 7.0 1.8-7.8 X 10^3 Neutrophils (%) (Auto) 75 42-75 % Platelet Count 186 130-400 10^3/uL Potassium Level 4.1 3.6-5.0 MMOL/L Red Blood Count 3.79 L 4.35-5.85 10^6/uL Red Cell Distribution Width 17.8 H 10.0-14.5 % Sodium Level 139 135-145 MMOL/L Total Bilirubin 0.5 0.1-1.0 MG/DL Total Protein 5.7 L 6.4-8.2 G/DL White Blood Count 9.3 4.3-11.0 10^3/uL My Orders Orders-JIMENA SANDY MD Cbc With Automated Diff (08/26/16 10:35) Comprehensive Metabolic Panel (08/26/16 10:35) Ua Culture If Indicated (08/26/16 10:35) Hydromorphone Injection (Dilaudid Inject (08/26/16 12:15) Vital Signs/I&O Vital Sign - Last 12Hours 08/26/16 10:17 Temp 96.3 Pulse 65 Resp 18 B/P 146/69 Pulse Ox 98 Blood Pressure Mean: 94 Departure Communication Progress Notes [id number] Pham. She is in [place] at the clinic today. She agreed that we would admit the patient for IV fluids. She wants him to have his scheduled radiation today. I have spoken to Dr. Gtz and he is arranging at the possibility of a PEG tube. Dr. Pham will see him this afternoon and determine whether she believes this to be necessary. Impression Impression: Primary Impression: Mantle cell lymphoma Disposition: ADMITTED INPATIENT Condition: Stable/Unchanged Decision to Admit Reason: Admit from ER (General) Decision to Admit/Date: Aug 26, 2016 Time/Decision to Admit Time: 12:21 Departure-Patient Inst. Referrals: SUMAYA WING MD (PCP/Family) Primary Care Physician JIMENA SANDY MD Aug 26, 2016 11:15
[2016-08-26 11:24] LABS: ALANINE AMINOTRANSFERASE 9 U/L (0-55); ALBUMIN 3.3 G/DL (3.2-4.5); ANION GAP 11 MMOL/L (5-14); ASPARTATE AMINO TRANSFERASE 21 U/L (5-34); BILIRUBIN,TOTAL 0.5 MG/DL (0.1-1.0); BLOOD UREA NITROGEN 17 MG/DL (7-18); BUN/CREATININE RATIO 23; CALCIUM 9.1 MG/DL (8.5-10.1); CARBON DIOXIDE 26 MMOL/L (21-32); CHLORIDE 102 MMOL/L (98-107); CREATININE SERUM 0.75 MG/DL (0.60-1.30); GFR ESTIMATED > 60; GLUCOSE 98 MG/DL (70-105); POTASSIUM 4.1 MMOL/L (3.6-5.0); SODIUM 139 MMOL/L (135-145); TOTAL PROTEIN 5.7 G/DL (6.4-8.2)
[2016-08-26] MEDS ORDERED: HYDROmorphone (DILAUDID) 2 MG/ML VIAL IVP ONE (12:15)
[2016-08-26] MEDS ORDERED: ACYC200C PO (12:19)
[2016-08-26] MEDS ORDERED: OXYC5SOL19 PO (12:19)
[2016-08-26] MEDS ORDERED: OMEP20CA12 PO (12:19)
[2016-08-26] MEDS ORDERED: DIGO125T PO (12:19)
[2016-08-26] MEDS ORDERED: ALLO300T2 PO (12:19)
[2016-08-26 13:05] VITALS: BP 161/71
[2016-08-26] MEDS ORDERED: LACTATED RINGERS 1,000 ML IV SCH ×2 (13:15→13:45)
[2016-08-26] MEDS ORDERED: HYDROmorphone (DILAUDID) 2 MG/ML VIAL IV PRN (13:45)
[2016-08-26] MEDS ORDERED: CATHETER FLUSH 10 ML SYR IV PRN (13:45)
[2016-08-26] MEDS ORDERED: ONDANSETRON 4 MG/2 ML (SDV) Z0FRAN IVP PRN (14:00)
--- NOTE | 2016-08-26 14:05 | Consultation ---
History of Present Illness History of Present Illness Patient Consulted On(oren/time) 08/26/16 13:56 Date of Admission 08/26/16 History of Present Illness This is a 71 year old male who was seen with Dr. Lagunas. Patient reports that about 3 months he developed bilateral masses near the cheek area. He reports that he seen Dr. Haile because they though he had an abscess and was started on abx. Patient reports that the abx did not help and the left side mass was then biopsied and found to be mantle call lymphoma. Patient says he then had a port placed to undergo chemotherapy and reports the the right side did improve however the left side has continued to increase in size. He reports that they did increase he chemotherapy dose but still yet the left side mass is still becoming larger. He reports that yesterday he received his first round of radiation. He reports that he was up all night with pain and is having difficulty eating and drinking. He reports that his dysphagia has gradually been becoming worse over the last 2 weeks but is worse today. He did call the cancer center this morning and was instructed to present to the ER. He reports that he does still continue to smoke. He denies any N/V as well as no diarrhea. He reports that he has had issues with constipation but says that he does take iron supplement. Allergies and Home Medications Allergies Coded Allergies: No Known Drug Allergies (Unverified , 07/23/16) Home Medications Acyclovir 200 Mg Capsule 200 MG PO DAILY (Reported) Allopurinol 300 Mg Tablet 300 MG PO DAILY (Reported) Aspirin 81 Mg Tablet. 81 MG PO DAILY (Reported) Digoxin 125 Mcg Tablet 125 MCG PO SuTuThSa (Reported) Digoxin 125 Mcg Tablet 250 MCG PO MoWeFr (Reported) Omeprazole 20 Mg Capsule.dr 20 MG PO DAILY (Reported) Oxycodone HCl 5 Mg/5 Ml Solution 5 ML PO Q6H PRN PRN PAIN (Reported) Past Cksmtih-Xmpkct-Znjgdm Hx Patient Social History Smoking Status: Current Everyday Smoker Type Used: Cigars Recent Foreign Travel: No Contact w/Someone Who Travel: No Recent Infectious Disease Expo: No Recent Hopitalizations: No Immunizations Up To Date Tetanus Booster (TDap): Less than 5yrs Seasonal Allergies Seasonal Allergies: No Surgeries HX Surgeries: Yes (SKIN CANCERS REMOVED, STENTS IN HEART x2, IN LEFT ARM x1, STENT IN ABDOMEN) Respiratory Hx Respiratory Disorders: Yes (RECENT SOB) Cardiovascular Hx Cardiac Disorders: Yes ( 2 STENTS IN HEART, A-FIB, CAD) Neurological Hx Neurological Disorders: Yes (POLYNEUROPATHY) Reproductive System Hx Reproductive Disorders: No Sexually Transmitted Disease: No HIV/AIDS: No Genitourinary Hx Genitourinary Disorders: No Gastrointestinal Hx Gastrointestinal Disorders: Yes Gastrointestinal Disorders: Gastroesophageal Reflux Musculoskeletal Hx Musculoskeletal Disorders: Yes Musculoskeletal Disorders: Arthritis Endocrine Hx Endocrine Disorders: No HEENT HX ENT Disorders: Yes (GLASSES, RIGHT EYE CATARCT) HEENT Disorders: Cataract Loss of Vision: Denies Hearing Impairment: Hard of Hearing Cancer Hx Cancer: Yes (MANTLE CELL LYMPHOMA, NON HODGKINS) Cancer: Skin, Lymphoma Psychosocial Hx Psychiatric Problems: Yes Behavioral Health Disorders: Sleep Difficulties Integumentary HX Skin/Integumentary Disorder: Yes (04-07-16 - RASH ON BACK - CHEMO ON THE 10TH ) Skin/Integumentary Disorders: Recent Skin Changes Blood Transfusions Hx Blood Disorders: No Adverse Reaction to a Blood Tr: No Family Medical History Family Medial History: Alcoholism G8 BROTHER Alzheimer's disease 19 MOTHER Aphasia Arthritis 19 FATHER 19 MOTHER G8 BROTHER Cardiovascular disease 19 FATHER 19 MOTHER G8 BROTHER G8 BROTHER Completed stroke 19 MOTHER Coronary thrombosis G8 BROTHER Deafness or hearing loss G8 BROTHER G8 BROTHER Glaucoma G8 BROTHER Myocardial infarction 19 FATHER Visual disorder 19 MOTHER Review of Systems-General Constitutional: malaise weakness weight loss EENTM: see HPI throat pain Respiratory: no symptoms reported Cardiovascular: no symptoms reported Gastrointestinal: constipationNo nausea, No vomiting Genitourinary: no symptoms reported Musculoskeletal: neck pain Skin: no symptoms reported Psychiatric/Neurological: No Symptoms Reported Physical Exam-General Problems Physical Exam Vital Signs Vital Sign - Last 12Hours 08/26/16 08/26/16 10:17 13:05 Temp 96.3 Pulse 65 Resp 18 B/P 146/69 Pulse Ox 98 O2 Delivery Room Air Capillary Refill : Less Than 3 Seconds General Appearance: WD/WN no apparent distress HEENT: PERRL/EOMI other (Tongue is cracked and dry with browinsh discoloration noted.) Neck: other (There is a mass noted of the left mandible area that extends to the prearicular area, this does extend toward the uvula. No redness or drainage noted. There is no pain with moderate palpation. ) Respiratory: no respiratory distress no accessory muscle use Cardiovascular: regular rate, rhythm no edema Gastrointestinal: normal bowel sounds non tender soft Back: normal inspection no CVA tenderness Extremities: normal range of motion non-tender normal inspection no pedal edema no calf tenderness normal capillary refill Neurologic/Psychiatric: alert normal mood/affect oriented x 3 Skin: normal color warm/dry Assessment/Plan Assessment/Plan Admission Diagnosis/Plan A 71 year old male with mantle cell lymphoma and dysphagia. IV fluids. IV nausea and IV pain medication. Clear liquid diet. NPO at 0200 on 08/27/16. Will schedule for EGD with PEG tube tomorrow. Copy Copies To 1: VERITO LAGUNAS MD Copies To 2: SUMAYA WING MD, DUSTIN L APRN Aug 26, 2016 14:05
--- NOTE | 2016-08-26 14:32 | Oncology History & Physical ---
Visit Information Visit Information Date of Admission Aug 26, 2016 at 12:34 Attending Physician Esther Mercado MD Admitting Physician Ruth Soni MD Chief Complaint pain over throat and neck. Difficulty swallow Interval History Mr. 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 He started his radiation to his left neck area yesterday and experienced increasing pain and swelling of the throat and the neck. He had not be able to sleep at all. He called cancer center in [place] this morning but I was at the [facility] today. Therefore, he was instructed to go ER. Dr. Monroy saw patient and decided to admitted the patient for pain control, IVF and possible PEG tube placement. He did not have any nausea at home but he had nausea right after the Dilaudid pain med at ER. No fever, chills. I consulted the patient on: 08/26/16 14:27 Constitutional: dizziness EENTM: mouth pain mouth swelling throat pain throat swelling Respiratory: phlegm Cardiovascular: no symptoms reported Gastrointestinal: nausea Psychiatric/Neurological: Anxiety Health Status Allergies Coded Allergies: No Known Drug Allergies (Unverified , 07/23/16) Home Medications Acyclovir (Acyclovir) 200 Mg Capsule 200 MG PO DAILY (Reported) Allopurinol (Allopurinol) 300 Mg Tablet 300 MG PO DAILY (Reported) Aspirin (Aspir 81) 81 Mg Tablet. 81 MG PO DAILY (Reported) Digoxin (Digox) 125 Mcg Tablet 125 MCG PO SuTuThSa (Reported) Digoxin (Digoxin) 125 Mcg Tablet 250 MCG PO MoWeFr (Reported) Omeprazole (Omeprazole) 20 Mg Capsule. 20 MG PO DAILY (Reported) Oxycodone HCl (Oxycodone HCl) 5 Mg/5 Ml Solution 5 ML PO Q6H PRN PRN PAIN ( Reported) JVX-Plhrdm-Chbysr Hx Patient Social History Alcohol Use: Denies Use Recreational Drug Use: No Smoking Status: Current Everyday Smoker Type Used: Cigars Recent Foreign Travel: No Contact w/other who traveled: No Recent Infectious Disease Expo: No Recent Hopitalizations: Yes Physical Abuse Screen: No Sexual Abuse: No Immunizations Up To Date Tetanus Booster (TDap): Less than 5yrs Family Medical History Family History: Alcoholism G8 BROTHER Alzheimer's disease 19 MOTHER Aphasia Arthritis 19 FATHER 19 MOTHER G8 BROTHER Cardiovascular disease 19 FATHER 19 MOTHER G8 BROTHER G8 BROTHER Completed stroke 19 MOTHER Coronary thrombosis G8 BROTHER Deafness or hearing loss G8 BROTHER G8 BROTHER Glaucoma G8 BROTHER Myocardial infarction 19 FATHER Visual disorder 19 MOTHER Data Review Labs Laboratory Tests 08/26/16 10:50 Laboratory Tests 08/26/16 10:50: Hematocrit 33L, Hemoglobin 10.6L, Red Blood Count 3.79L, Red Cell Distribution Width 17.8H, Total Protein 5.7L Physical Exam Vital Signs Vital Sign - Last 12Hours 08/26/16 08/26/16 10:17 13:05 Temp 96.3 Pulse 65 Resp 18 B/P 146/69 Pulse Ox 98 O2 Delivery Room Air Capillary Refill : Less Than 3 Seconds General Appearance: No Apparent Distress HEENT: PERRL/EOMI Tonsillar Enlargement (large tumor of the left cross midline with ulcerations) Neck: Limited Range of Motion Lymphadenopathy (L) Tender Lateral Respiratory: Chest Non Tender Lungs Clear No Accessory Muscle Use No Respiratory Distress Cardiovascular: Regular Rate, Rhythm No JVD Gastrointestinal: Non Tender Soft Extremity: Non Tender No Calf Tenderness No Pedal Edema Neurologic/Psychiatric: Alert Oriented x3 Impression & Plan Impression & Plan IMP: 1. Mantle cell lymphoma, CD 20 strong positive. Initial presentation of neck masses bilaterally and left tonsil mass near to the midline of the throat. s/p Treanda and Rituxine with great initial response, tumor shrinked about 80% by exam and CT scan05/2016. Then the tumor regrow after #5 cycle of Treanda and Rituxane. Treatment changed to PCR (Pantostatin, Cytoxan and Rituxan) 2015. Tumor was initially shrinking but then re-grow. I discussed with Dr Haney again and he started radiation treatment yesterday 08/25/16. I anticipate the tumor in his throat and left neck will reduce in size in a few days after the radiation treatment. In the meantime, we can give him IV pain meds and IV Clinimix for hydration and nutrition. 2. Dysphagia due to #1. I would HOLD OFF the PEG tube placement for now since I anticipate a short term problem. We can re-evaluated the situation next week. If he is still not able to take adequate PO, we can then consider PEG. 3. Weight loss 25-30 over 3-4 months due to #1 and #2. 4. h/o CAD and aFib, s/p cardiac stents. Off coumadin by Pt decision. 5. oral thrush. will start Diflucan IV 6. 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 Pt livers by himself and does not want to burden his family for his care. 9. MUG scan EF 46% 06/2016. Marginal cardiac function. Plan: 1. IV Clinimix 2. Change Dilaudid to IV morphine 3. Decadron and Zofran IV bid 4. HOLD off PEG tube placement. Appreciate Dr Gtz's input and help. 5. Continue daily radiation. 6. Diflucan IV 7. Anticipate short stay 2-3 days ESTHER MERCADO MD Aug 26, 2016 14:32
[2016-08-26 14:33] VITALS: BP 161/71
[2016-08-26] MEDS: ONDANSETRON 4 MG/2 ML (SDV) Z0FRAN IVP SCH ×2 (14:44→20:34)
[2016-08-26] MEDS ORDERED: FLU TRIvalent (5 YOA+) 2016-17 (AFLURIA) 0.5 ML IM ONE (14:45)
[2016-08-26] MEDS: DEXAMETHASONE 4 MG/ML SDV (DECADRON) IV SCH ×2 (14:45→20:34)
--- NOTE | 2016-08-26 15:44 | Progress Note-Standard ---
Standard Progress Note Progress Notes/Assess & Plan Progress/Assessment & Plan oncology input read and understand. will hold off on PEG for now in hopes of resolution tumor/edema with no oralpharygeal compromise and no dysphagia. VERITO LAGUNAS MD Aug 26, 2016 15:44
[2016-08-26] MEDS: FLUCONAZOLE 200 MG/100 ML 100 ML IV SCH (15:55)
[2016-08-26 16:23] VITALS: BP 105/58
[2016-08-26] MEDS: AA 4.25% W/LYTES IN D5W IV SOL 1,000 ML IV SCH ×2 (18:36→23:00)
[2016-08-26 19:49] LABS: BILIRUBIN,URINE NEGATIVE (NEGATIVE); KETONES,URINE 3+ (NEGATIVE); LEUKOCYTE ESTERASE ,URINE NEGATIVE (NEGATIVE); NITRITE,URINE NEGATIVE (NEGATIVE); PH,URINE 5 (5-9); PROTEIN,URINE 2+ (NEGATIVE); UROBILINOGEN,URINE 1 MG/DL (NORMAL)
[2016-08-26 20:00] VITALS: BP 149/73
[2016-08-26 20:01] LABS: SQUAMOUS EPITHELIAL CELL,UR 0-2 /HPF; WBC,URINE 0-2 /HPF
[2016-08-26] MEDS ORDERED: DEXAMETHASONE 4 MG/ML SDV (DECADRON) IV SCH (21:00)
[2016-08-27] VITALS: BP 135/79
[2016-08-27 05:17] VITALS: BP 148/75
[2016-08-27] MEDS: AA 4.25% W/LYTES IN D5W IV SOL 1,000 ML IV SCH ×3 (05:26→20:23)
[2016-08-27 08:27] VITALS: BP 134/65
[2016-08-27] MEDS: DEXAMETHASONE 4 MG/ML SDV (DECADRON) IV SCH ×2 (08:29→20:23)
[2016-08-27] MEDS: ONDANSETRON 4 MG/2 ML (SDV) Z0FRAN IVP SCH ×2 (08:30→20:22)
[2016-08-27] MEDS: FLUCONAZOLE 200 MG/100 ML 100 ML IV SCH (08:37)
[2016-08-27] MEDS: morphine INJ 4 MG/ML 1 ML (VIAL/SYRINGE) IVP PRN ×3 (09:10→20:23)
--- NOTE | 2016-08-27 09:42 | Oncology Progress Note ---
Subjective Subjective/Events-last exam Doing better, less pain. Able to talk and handle liquid-soft food. Had his radiation treatment today. Data Review Labs Laboratory Tests 08/26/16 10:50: Hematocrit 33L, Hemoglobin 10.6L, Red Blood Count 3.79L, Red Cell Distribution Width 17.8H, Total Protein 5.7L 08/26/16 19:45: Urine Ketones 3+H, Urine Mucus MODERATEH, Urine Protein 2+H, Urine Specific Street 1.025H Physical Exam Vital Signs Vital Sign - Last 12Hours 08/26/16 08/26/16 10:17 13:05 Temp 96.3 Pulse 65 Resp 18 B/P 146/69 Pulse Ox 98 O2 Delivery Room Air Capillary Refill : Less Than 3 Seconds General Appearance: No Apparent Distress HEENT: PERRL/EOMI Tonsillar Enlargement Other (tumor started slugh off) Neck: Lymphadenopathy (L) Tender Lateral Respiratory: Lungs Clear No Accessory Muscle Use No Respiratory Distress Cardiovascular: No Edema No Gallop No JVD Irregularly Irregular Gastrointestinal: Non Tender Soft Extremity: Non Tender No Calf Tenderness No Pedal Edema Neurologic/Psychiatric: Alert Oriented x3 Impression & Plan Impression & Plan IMP: 1. Mantle cell lymphoma, CD 20 strong positive. Initial presentation of neck masses bilaterally and left tonsil mass near to the midline of the throat. s/p Treanda and Rituxine with great initial response, tumor shrinked about 80% by exam and CT scan05/2016. Then the tumor regrow after #5 cycle of Treanda and Rituxane. Treatment changed to PCR (Pantostatin, Cytoxan and Rituxan) 2015. Tumor was initially shrinking but then re-grow. I discussed with Dr Haney again and he started radiation treatment 08/25/16. I anticipate the tumor in his throat and left neck will reduce in size in a few days after the radiation treatment. In the meantime, we can give him IV pain meds and IV Clinimix for hydration and nutrition. 2. Dysphagia due to #1. I would HOLD OFF the PEG tube placement for now since I anticipate a short term problem. We can re-evaluated the situation next week. If he is still not able to take adequate PO, we can then consider PEG. 3. Weight loss 25-30 over 3-4 months due to #1 and #2. 4. h/o CAD and aFib, s/p cardiac stents. Off coumadin by Pt decision. 5. oral thrush. will start Diflucan IV 6. Squamous cell CA of skin over right congregational facial area, s/p completely excision 03/11/16. 7. 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 Pt livers by himself and does not want to burden his family for his care. 9. MUG scan EF 46% 06/2016. Marginal cardiac function. Plan: 1. Continue IV Clinimix 2. Continue IV morphine PRN 3. Decadron and Zofran IV bid for 2 more days and then stop. IV Pepcid. 4. HOLD off PEG tube placement. Appreciate Dr Gtz's input and help. 5. Continue daily radiation. 6. Diflucan IV and Clindamycin IV. 7. Anticipate to stay to next Tue. 8. Dr Neves covers for the weekend. 9. Warm salt water mouth rinsing q 2hrs. Pt knows to do it. Clinical Quality Measures DVT/VTE Risk/Contraindication: Risk Factor Score Per Nursin RFS Level Per Nursing on Admit: 4+=Very High BELEM MERCADO MD Aug 27, 2016 09:42
--- NOTE | 2016-08-27 10:22 | ST Dysphagia Evaluation ---
Speech Evaluation-General Medical Diagnosis Odynophagia, Mantel Cell Lymphoma Onset Date: Aug 26, 2016 Therapy Diagnosis Therapy Diagnosis: Moderate Oropharyngeal Dysphagia Precautions Precautions: Aspiration Precautions/Isolations: Fall Prevention, Standard Precautions Referral Referring Physician: Dr. Esther Pham Reason for Referral: Evaluation/Treatment Clinical Bedside Swallowing Evaluation Medical History Pertinent Medical History: Atrial Fib, Arthritis, CAD, GERD Mantle cell lymphoma, Polyneuropathy Reviewed History: Yes Speech PLF/Current-Dysphagia Prior Level of Function The patient stated he occasionally coughs on thin liquids, however, denied frequent challenges with any consistency he currently consumes. (regular with thin liquids). Subjective The patient was recently admitted to [facility] with a diagnosis of dysphagia secondary to mantel cell lymphoma (undergoing radiation treatment). Per patient, he is unable to eat or drink due to extreme odynophagia. The patient continues to deny coughing, choking, or any other additional signs/ symptoms of aspiration with PO intake. The patient agreed to participate in the dysphagia evaluation on this date. No recent chest exams are available fo review. The patient denied shortness of breath at baseline. Cognitive Status Patient Orientation: Person, Place, Time, Situation Oral Motor Skills Dentition: Edentalous Current Food Consistancy: Pureed, Thin Liquids Ability to Follow Directions: Good Oral Expression Ability: Mild Impairment Other Contributing Factors: Radiation Therapy (Thick, copious oral secretions were noted.), Chemotherapy Voice Voice Phonatory-Based Quality: Harsh Voice Pitch: Normal Voice Loudness: Normal (Hypopharyngeal resonance noted.) Face Facial Symmetry: Symmetrical Oral-Facial Assessment Oral-Facial Dentition: Normal Labial Seal Description: Normal Smile: Normal Puff Cheeks: Normal Lingual Protrusion: Abnormal (Decreased lingual protrusion.) Lingual ROM: Abnormal (Decreased range of motion bilaterally.) Lingual Strength: Abnormal (Decreased strength bilaterally.) Pharynx Velopharyngeal Move.: Hypernasality (Absent velar elevation was noted.) Volitional Dry Swallow: Yes Dysphagia Evaluation Consistencies Presented: Thin Liquid (Via teaspoon), [place] Thick Liquid (Via teaspoon and straw sip.), Pureed (Applesauce) Oral Phase: Anterior Spillage, Reduced Oral Transit Anterior spillage was noted of thin liquid consistencies (mild). Pharyngeal Phase: Multiple Swallow Attempts, Clears Throat, Delayed Laryngeal Elevation, Delayed Swallow The patient demonstrated multiple swallows with each bolus of thin liquid, nectar-thick liquid, and puree. Additionally, a throat clear was noted following thin liquid consistencies (via teaspoon). Funct. Velo/Pharyngeal Symptom: Clears Throat, Cough After Swallow - Thin Liquid (via teaspoon): The patient demonstrated an immediate throat clear and wet vocal quality following thin liquid bolus trials via teaspoon. - [place]-thick liquid (via teaspoon and straw): No signs/symptoms of aspiration were demonstrated with multiple boluses of nectar-thick liquid. - Puree: No signs/symptoms of aspiration were demonstrated with multiple boluses of puree. Dietary Recommendations: Pureed Liquid Recommendations: [place] Consistancy Swallowing Precautions: Decreased Bolus 1/4 Tsp, Small Bites and Sips, Sitting 90 Degrees 30 Post Intake 1. Crush medication and place in puree for administration. Dysphagia Evaluation Summary The patient demonstrated moderate oropharyngeal dysphagia characterized by decreased lingual range of motion and strength, absent velar elevation, reduced laryngeal elevation, and decreased airway protection in the presence of bolus material. Speech Short Term Goals Short Term Goals Short Term Goals 1. The patient will tolerate bolus trials of the least restrictive consistency without signs/symptoms of aspiration. Time Frame-STG: One Week. Speech Detention Goals Detention Goals 1. The patient will tolerate the least restrictive diet without signs/symptoms of aspiration. Time Frame: Two Weeks. Speech-Plan Treatment Plan Speech Therapy Treatment Plan: Continue Plan of Care Treatment Duration: Sep 10, 2016 # of days/week One to Three Visits Per Week: One to Three Minutes/Day (M-F): 20 Rehab Potential: Guarded Safety Risks/Education Teaching Recipient: Patient Teaching Methods: Handout, Discussion Response to Teaching: Verbalize Understanding, Reinforcement Needed Education Topics Provided: Dysphagia following Radiation (handout), Results, Recommendations Time Speech Therapy Time In: 08:30 Speech Therapy Time Out: 08:50 Total Billed Time: 20 Billed Treatment Time 1[facility] Aug 27, 2016 10:22
--- NOTE | 2016-08-27 10:43 | Progress Note (SOAP) ---
Subjective Subjective/Events-last exam doing better. less oralpharygeal edema. tolerating liquids. no airway compromise. Objective Exam Vital Signs Date Time Temp Pulse Resp B/P Pulse Ox O2 Delivery O2 Flow Rate FiO2 08/27/16 08:27 97.8 77 16 134/65 96 Room Air 08/27/16 05:17 99.0 69 16 148/75 97 Room Air 08/27/16 00:00 99.3 77 18 135/79 98 Room Air 08/26/16 21:00 97 Room Air 08/26/16 20:00 98.7 76 18 149/73 97 Room Air 08/26/16 16:23 97.0 80 16 105/58 96 Room Air 08/26/16 14:33 97.9 63 18 161/71 96 08/26/16 14:00 Room Air 08/26/16 13:05 97.9 63 18 161/71 96 Room Air 08/26/16 12:47 98.0 79 18 98 I & O 08/27/16 07:00 Intake Total 800 ml Output Total 325 ml Balance 475 ml Capillary Refill : Less Than 3 Seconds General Appearance: No Apparent Distress HEENT: PERRL/EOMI Neck: Full Range of Motion Respiratory: Chest Non Tender Normal Breath Sounds Cardiovascular: Regular Rate, Rhythm Gastrointestinal: normal bowel sounds non tender soft Extremity: Normal Capillary Refill Neurologic/Psychiatric: Alert Oriented x3 Skin: Normal Color Lymphatic: No Adenopathy Results Lab Laboratory Tests 08/26/16 10:50: Alanine Aminotransferase (ALT/SGPT) 9, Albumin 3.3, Alkaline Phosphatase 57, Anion Gap 11, Aspartate Amino Transf (AST/SGOT) 21, BUN/Creatinine Ratio 23, Basophils # (Auto) 0.0, Basophils (%) (Auto) 0, Blood Urea Nitrogen 17, Calcium Level 9.1, Carbon Dioxide Level 26, Chloride Level 102, Creatinine 0.75, Eosinophils # (Auto) 0.0, Eosinophils (%) (Auto) 0, Estimat Glomerular Filtration Rate > 60, Glucose Level 98, Hematocrit 33L, Hemoglobin 10.6L, Lymphocytes # (Auto) 1.5, Lymphocytes (%) (Auto) 16, Mean Corpuscular Hemoglobin 28, Mean Corpuscular Hemoglobin Concent 33, Mean Corpuscular Volume 86, Mean Platelet Volume 10.2, Monocytes # (Auto) 0.8, Monocytes (%) (Auto) 9, Neutrophils # (Auto) 7.0, Neutrophils (%) (Auto) 75, Platelet Count 186, Potassium Level 4.1, Red Blood Count 3.79L, Red Cell Distribution Width 17.8H, Sodium Level 139, Total Bilirubin 0.5, Total Protein 5.7L, White Blood Count 9.3 08/26/16 19:45: Urine Bacteria NEGATIVE, Urine Bilirubin NEGATIVE, Urine Casts NONE, Urine Clarity CLEAR, Urine Color YELLOW, Urine Crystals NONE, Urine Culture Indicated NO, Urine Glucose (UA) NEGATIVE, Urine Ketones 3+H, Urine Leukocyte Esterase NEGATIVE, Urine Mucus MODERATEH, Urine Nitrite NEGATIVE, Urine Protein 2+H, Urine RBC NONE, Urine RBC (Auto) NEGATIVE, Urine Specific [place] 1.025H, Urine Squamous Epithelial Cells 0-2, Urine Urobilinogen 1, Urine WBC 0-2, Urine pH 5 Assessment/Plan Assessment/Plan Assess & Plan/Chief Complaint mantel cell lymphoma. current therapy with chemo and radiation. dysphagia improving with medical therapy. may advance diet as tolerated. Diagnosis/Problems: Clinical Quality Measures DVT/VTE Risk/Contraindication: Risk Factor Score Per Nursin RFS Level Per Nursing on Admit: 4+=Very High VERITO LAGUNAS MD Aug 27, 2016 10:43 am
[2016-08-27] MEDS ORDERED: CHLORASEPTIC LOZENGE MM PRN (11:45)
[2016-08-27] MEDS: FAMOTIDINE 20MG/2ML IV (PEPCID) IVP SCH (12:20)
[2016-08-27 12:22] VITALS: BP 118/68
[2016-08-27] MEDS: CLINDAMYCIN 600 MG/50 ML IVPB 50 ML IV SCH ×2 (14:03→21:41)
[2016-08-27 16:00] VITALS: BP 101/55
[2016-08-27 20:00] VITALS: BP 122/67
[2016-08-28] VITALS: BP 108/58
[2016-08-28] MEDS: AA 4.25% W/LYTES IN D5W IV SOL 1,000 ML IV SCH ×3 (04:56→21:26)
[2016-08-28] MEDS: CLINDAMYCIN 600 MG/50 ML IVPB 50 ML IV SCH ×3 (05:00→21:19)
[2016-08-28 06:00] VITALS: BP 107/59
[2016-08-28 08:00] VITALS: BP 106/57
[2016-08-28] MEDS: morphine INJ 4 MG/ML 1 ML (VIAL/SYRINGE) IVP PRN (09:22)
[2016-08-28] MEDS: DEXAMETHASONE 4 MG/ML SDV (DECADRON) IV SCH ×2 (09:22→21:18)
[2016-08-28] MEDS: FAMOTIDINE 20MG/2ML IV (PEPCID) IVP SCH (09:29)
[2016-08-28] MEDS: ONDANSETRON 4 MG/2 ML (SDV) Z0FRAN IVP SCH ×2 (09:29→21:18)
[2016-08-28] MEDS: FLUCONAZOLE 200 MG/100 ML 100 ML IV SCH (09:42)
[2016-08-28 12:00] VITALS: BP 117/59
--- NOTE | 2016-08-28 15:09 | Progress Note (SOAP) ---
Subjective Subjective/Events-last exam Christofer Dinero is a 71 year old male who has known diagnosis of persistent and progressive Mantle Cell Lymphoma which progressed after initial and second line chemotherapy and who recently has been started on local radiation for his left neck mass; Radiation started earlier this week and patient has completed 3 treatments only. Today he describes some improvement both in level of pain as well as in his ability to turn and gaze leftward. IV Diflucan and every 2 hours while awake salt water rinses continue for his oral thrush. Objective Exam Vital Signs Date Time Temp Pulse Resp B/P Pulse Ox O2 Delivery O2 Flow Rate FiO2 08/28/16 12:00 97.8 82 18 117/59 99 Room Air 08/28/16 08:00 97.9 89 20 106/57 98 Room Air 08/28/16 06:00 98.1 73 16 107/59 97 Room Air 08/28/16 00:00 96.9 72 16 108/58 98 Room Air 08/27/16 20:25 Room Air 08/27/16 20:00 97.9 69 19 122/67 94 Room Air 08/27/16 16:00 96.7 69 18 101/55 95 Room Air I & O 08/28/16 07:00 Intake Total 3614 ml Balance 3614 ml Capillary Refill : Less Than 3 Seconds General Appearance: No Apparent Distress Chronically ill HEENT: Tonsillar Exudate Tonsillar Enlargement Other (Oral thrush present with both fissures and thick exudate on parts of tongue;) Neck: Limited Range of Motion Lymphadenopathy (L) Respiratory: Lungs Clear Normal Breath Sounds No Accessory Muscle Use Cardiovascular: Regular Rate, Rhythm No Edema No Gallop No JVD Gastrointestinal: normal bowel sounds non tender soft Neurologic/Psychiatric: Alert Oriented x3 Results Lab Laboratory Tests 08/26/16 10:50: Hematocrit 33L, Hemoglobin 10.6L, Red Blood Count 3.79L, Red Cell Distribution Width 17.8H, Total Protein 5.7L 08/26/16 19:45: Urine Ketones 3+H, Urine Mucus MODERATEH, Urine Protein 2+H, Urine Specific [place] 1.025H Assessment/Plan Assessment/Plan Assess & Plan/Chief Complaint 1. Mantle cell lymphoma, CD 20 strong positive. Initial presentation of neck masses bilaterally and left tonsil mass near to the midline of the throat. s/p Treanda and Rituxan with great initial response, tumor shrinked about 80% by exam and CT scan05/2016. Then the tumor regrow after #5 cycle of Treanda and Rituxane. Treatment changed to PCR (Pentostatin, Cytoxan and Rituxan) 2015. Tumor was initially shrinking but then re-grew. Case discussed with Dr Haney who started radiation treatment 08/25/16 and anticipate the tumor in his throat and left neck will reduce in size in a few days after the radiation treatment. In the meantime, plan is for IV pain meds and IV Clinimix for hydration and nutrition. 2. Dysphagia due to #1. Delay the PEG tube placement for now. We can re- evaluated the situation next week. If he is still not able to take adequate PO, we can then consider PEG. 3. Weight loss 25-30 over 3-4 months due to #1 and #2. 4. h/o CAD and aFib, s/p cardiac stents. Off coumadin by Pt decision. 5. oral thrush, receiving Diflucan IV 6. Squamous cell CA of skin over right bahai facial area, s/p completely excision 03/11/16. 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 Pt lives by himself and does not want to burden his family for his care. 9. MUGA scan EF 46% 06/2016. Marginal cardiac function. Plan: 1. Continue IV Clinimix 2. Continue IV morphine PRN 3. Decadron and Zofran IV bid for 2 more days and then stop. IV Pepcid. 4. HOLD off PEG tube placement. Appreciate Dr Gtz's input and help. 5. Continue daily radiation. 6. Diflucan IV and Clindamycin IV. 7. Anticipate to stay to next Tu. Diagnosis/Problems: Clinical Quality Measures DVT/VTE Risk/Contraindication: Risk Factor Score Per Nursin RFS Level Per Nursing on Admit: 4+=Very High DONNELL SAUCEDO MD Aug 28, 2016 15:09
[2016-08-28 16:00] VITALS: BP 105/55
[2016-08-28] MEDS: NICOTINE 14 MG (NICODERM) PATCH TD SCH (21:19)
[2016-08-29] VITALS: BP 99/56
[2016-08-29 04:00] VITALS: BP 121/61
[2016-08-29] MEDS: CLINDAMYCIN 600 MG/50 ML IVPB 50 ML IV SCH ×3 (05:09→21:07)
[2016-08-29 05:31] LABS: BASOPHILS % (AUTO) 0 % (0-10); EOSINOPHILS % (AUTO) 0 % (0-10); LYMPHOCYTES # (AUTO) 0.4 X 10^3 (1.0-4.0); LYMPHOCYTES % (AUTO) 3 % (12-44); MEAN CORPUSCULAR HEMOGLOBIN 28 PG (25-34); MEAN CORPUSCULAR HGB CONC 32 G/DL (32-36); MEAN CORPUSCULAR VOLUME 87 FL (80-99); MEAN PLATELET VOLUME 10.8 FL (7.4-10.4); MONOCYTES # (AUTO) 0.5 X 10^3 (0.0-1.0); MONOCYTES % (AUTO) 4 % (0-12); NEUTROPHILS # (AUTO) 12.7 X 10^3 (1.8-7.8); NEUTROPHILS % (AUTO) 94 % (42-75); PLATELET COUNT 159 10^3/uL (130-400); RED BLOOD COUNT 3.35 10^6/uL (4.35-5.85); RED CELL DISTRIBUTION WIDTH 18.1 % (10.0-14.5); WHITE BLOOD COUNT 13.5 10^3/uL (4.3-11.0)
[2016-08-29] MEDS: AA 4.25% W/LYTES IN D5W IV SOL 1,000 ML IV SCH (05:45)
[2016-08-29 06:12] LABS: ANION GAP 6 MMOL/L (5-14); BLOOD UREA NITROGEN 52 MG/DL (7-18); BUN/CREATININE RATIO 66; CALCIUM 8.8 MG/DL (8.5-10.1); CARBON DIOXIDE 28 MMOL/L (21-32); CHLORIDE 100 MMOL/L (98-107); CREATININE SERUM 0.79 MG/DL (0.60-1.30); GFR ESTIMATED > 60; GLUCOSE 124 MG/DL (70-105); MAGNESIUM 2.3 MG/DL (1.8-2.4); SODIUM 134 MMOL/L (135-145)
[2016-08-29 06:21] LABS: POTASSIUM 5.7 MMOL/L (3.6-5.0)
[2016-08-29 07:40] VITALS: BP 111/59
[2016-08-29] MEDS ORDERED: NICOTINE 14 MG (NICODERM) PATCH TD SCH (09:00)
[2016-08-29] MEDS: ONDANSETRON 4 MG/2 ML (SDV) Z0FRAN IVP SCH (09:16)
[2016-08-29] MEDS: FAMOTIDINE 20MG/2ML IV (PEPCID) IVP SCH (09:17)
[2016-08-29] MEDS: NICOTINE 14 MG (NICODERM) PATCH TD SCH (09:17)
[2016-08-29] MEDS: DEXAMETHASONE 4 MG/ML SDV (DECADRON) IV SCH (09:17)
[2016-08-29] MEDS: FLUCONAZOLE 200 MG/100 ML 100 ML IV SCH (09:17)
--- NOTE | 2016-08-29 09:50 | Progress Note (SOAP) ---
Subjective Subjective/Events-last exam Patient is alert, awake and eating full liquid diet. He states he has been eating banana pudding in addition to potassium being received in Clinimix; No pain, nausea or vomiting is reported. Objective Exam Vital Signs Date Time Temp Pulse Resp B/P Pulse Ox O2 Delivery O2 Flow Rate FiO2 08/29/16 07:40 96.3 98 22 111/59 97 Room Air 08/29/16 04:00 97.3 66 22 121/61 98 Room Air 08/29/16 00:00 98.1 77 22 99/56 99 Room Air 08/28/16 20:20 Room Air 08/28/16 16:00 98.5 77 20 105/55 98 Room Air 08/28/16 12:00 97.8 82 18 117/59 99 Room Air I & O 08/29/16 07:00 Intake Total 3900 ml Output Total 1700 ml Balance 2200 ml Capillary Refill : Less Than 3 Seconds General Appearance: Chronically ill HEENT: Tonsillar Exudate Tonsillar Enlargement Other (left neck mass;) Neck: Lymphadenopathy (L) Respiratory: Lungs Clear No Accessory Muscle Use No Respiratory Distress Cardiovascular: No Edema No JVD Gastrointestinal: normal bowel sounds non tender soft no organomegaly Neurologic/Psychiatric: Alert Oriented x3 Results Lab Laboratory Tests 08/29/16 05:05 08/29/16 10:25 Laboratory Tests 08/29/16 05:05: Anion Gap 6, BUN/Creatinine Ratio 66, Basophils # (Auto) 0.0, Basophils (%) ( Auto) 0, Blood Urea Nitrogen 52H, Calcium Level 8.8, Carbon Dioxide Level 28, Chloride Level 100, Creatinine 0.79, Eosinophils # (Auto) 0.0, Eosinophils (%) ( Auto) 0, Estimat Glomerular Filtration Rate > 60, Glucose Level 124H, Hematocrit 29L, Hemoglobin 9.4L, Lymphocytes # (Auto) 0.4L, Lymphocytes (%) ( Auto) 3L, Magnesium Level 2.3, Mean Corpuscular Hemoglobin 28, Mean Corpuscular Hemoglobin Concent 32, Mean Corpuscular Volume 87, Mean Platelet Volume 10.8H, Monocytes # (Auto) 0.5, Monocytes (%) (Auto) 4, Neutrophils # (Auto) 12.7H, Neutrophils (%) (Auto) 94H, Platelet Count 159, Potassium Level 5.7H, Red Blood Count 3.35L, Red Cell Distribution Width 18.1H, Sodium Level 134L, White Blood Count 13.5H Assessment/Plan Assessment/Plan Assess & Plan/Chief Complaint 1. Mantle cell lymphoma, CD 20 strong positive. Initial presentation of neck masses bilaterally and left tonsil mass near to the midline of the throat. s/p Treanda and Rituxan with great initial response, tumor shrinked about 80% by exam and CT scan05/2016. Then the tumor regrow after #5 cycle of Treanda and Rituxane. Treatment changed to PCR (Pentostatin, Cytoxan and Rituxan) 2015. Tumor was initially shrinking but then re-grew. Case discussed with Dr Haney who started radiation treatment 08/25/16 and anticipate the tumor in his throat and left neck will reduce in size in a few days after the radiation treatment. In the meantime, plan is for IV pain meds and IV Clinimix for hydration and nutrition. 2. Dysphagia due to #1. Delay the PEG tube placement for now. We can re- evaluated the situation next week. If he is still not able to take adequate PO, we can then consider PEG. 3. Hyperkalemia, elevated BUN- hold Clinimix and administer IV normal Saline hydration; Repeat K+ was improved on recheck of BMP but IV hydration is indicated 4. h/o CAD and aFib, s/p cardiac stents. Off coumadin by Pt decision. 5. oral thrush, receiving Diflucan IV 6. Squamous cell CA of skin over right yarsani facial area, s/p completely excision 03/11/16. 7. residential smoker 8. Pt lives by himself and does not want to burden his family for his care. 9. MUGA scan EF 46% 06/2016. Marginal cardiac function. Plan: 1. Continue IV Clinimix 2. Continue IV morphine PRN 3. Decadron and Zofran IV bid for 2 more days and then stop. IV Pepcid. 4. HOLD off PEG tube placement. Appreciate Dr Gtz's input and help. 5. Continue daily radiation. 6. Diflucan IV and Clindamycin IV. 7. Anticipate to stay to next Tue. Diagnosis/Problems: Clinical Quality Measures DVT/VTE Risk/Contraindication: Risk Factor Score Per Nursin RFS Level Per Nursing on Admit: 4+=Very High DONNELL SAUCEDO MD Aug 29, 2016 09:50
[2016-08-29 10:54] LABS: ANION GAP 8 MMOL/L (5-14); BLOOD UREA NITROGEN 55 MG/DL (7-18); BUN/CREATININE RATIO 65; CALCIUM 8.4 MG/DL (8.5-10.1); CARBON DIOXIDE 25 MMOL/L (21-32); CHLORIDE 100 MMOL/L (98-107); CREATININE SERUM 0.85 MG/DL (0.60-1.30); GFR ESTIMATED > 60; GLUCOSE 172 MG/DL (70-105); POTASSIUM 5.1 MMOL/L (3.6-5.0); SODIUM 133 MMOL/L (135-145)
[2016-08-29 11:35] VITALS: BP 108/54
[2016-08-29] MEDS ORDERED: NS IV 1000 ML 1,000 ML IV SCH (12:00)
[2016-08-29] MEDS: NS IV 1000 ML 1,000 ML IV SCH ×2 (12:27→21:08)
[2016-08-29 16:00] VITALS: BP 104/59
[2016-08-30] VITALS: BP 94/54
[2016-08-30] MEDS: CLINDAMYCIN 600 MG/50 ML IVPB 50 ML IV SCH ×2 (05:13→13:26)
[2016-08-30] MEDS: NS IV 1000 ML 1,000 ML IV SCH (05:13)
[2016-08-30 07:58] VITALS: BP 100/56
[2016-08-30] MEDS: FAMOTIDINE 20MG/2ML IV (PEPCID) IVP SCH (09:15)
[2016-08-30] MEDS: NICOTINE 14 MG (NICODERM) PATCH TD SCH (09:15)
[2016-08-30] MEDS: FLUCONAZOLE 200 MG/100 ML 100 ML IV SCH (09:16)
[2016-08-30 11:53] VITALS: BP 104/54
--- NOTE | 2016-08-30 15:33 | Oncology Discharge Summary ---
Diagnosis/Chief Complaint Date of Admission Aug 26, 2016 at 12:34 Date of Discharge Discharge Date: Discharge Diagnosis 1. Mantle cell lymphoma,on radiation treatment. 2. Dysphagia due to #1. 3. Hyperkalemia, 4. h/o CAD and aFib, s/p cardiac stents. Off coumadin by Pt decision. 5. oral thrush, receiving Diflucan IV 6. Pain control issue 7. FDC smoker Reason Hospital Visit Mr. Dinero is a 71 year old white man with mantle cell lymphoma who was admitted on 08/26/16 for pain control, dysphagia, oral thrush and dehydration. He was treated with IVF, IV morphine and radiation for the tumor at his left neck. His pain is much better. He is able to eat soft food and full liquid diet. His left neck tumor is reducing in size. We hold off his PEG tube placement since he is eating better. He felt well enough and wanted to go home today. He will come back tomorrow to continue his radiation treatment. Discharge condition: Improved and pain in good control F/u See Dr Pham on 09/01/16 at 2:15pm at Cancer center with CBC, CMP. Continue daily radiation as out-pt. . Discharge Summary Discharge Instructions to patient/family Please see electonic discharge instructions given to patient. Discharge Medications Reviewed and agree with Discharge Medication list on patient's Discharge Instruction sheet Clinical Quality Measures DVT/VTE Risk/Contraindication: Risk Factor Score Per Nursin RFS Level Per Nursing on Admit: 4+=Very High BEELM PHAM MD Aug 30, 2016 15:33
[2016-08-30] MEDS ORDERED: FLUC200T5 PO (15:35)
[2016-08-30 16:23] VITALS: BP 105/57
[2016-08-30 17:32] VITALS: BP 105/57
== END 2016-08-30 17:30 | disposition home or self-care (01) | DRG 841 ==
LOC: EDUNIT# 10:08 → ER 10:11 → CSD 12:34 → 4TH 08-27 13:20
PROVIDERS: ADMIT Internal Medicine Hematology & Oncology; ATTEND Internal Medicine Hematology & Oncology
DX: C83.11 Mantle cell lymphoma, lymph nodes of head, face, and neck (principal); R13.12 Dysphagia, oropharyngeal phase; B37.0 Candidal stomatitis; G89.3 Neoplasm related pain (acute) (chronic); F41.9 Anxiety disorder, unspecified; F32.9 Major depressive disorder, single episode, unspecified; I25.10 Atherosclerotic heart disease of native coronary artery without angina pectoris; I48.91 Unspecified atrial fibrillation; F17.290 Nicotine dependence, other tobacco product, uncomplicated; G62.9 Polyneuropathy, unspecified; K21.9 Gastro-esophageal reflux disease without esophagitis; R63.0 Anorexia; E87.5 Hyperkalemia; Z95.5 Presence of coronary angioplasty implant and graft
CPT/HCPCS: 36415; 77300; 77301; 77338; 77386; 77470; 80048; 80053; 81000; 83735; 85025; 96374; 99213

== ENCOUNTER → 2016-10-22 | Outpatient (CLI) | payer MEDICARE, MEDICAID ==
[~2016-10-22] MED LIST changes: +ACYC200C PO; +CHEMO PO; +FLUC200T5 PO; +HYDR-3820 PO; +OMEP20CA12 PO; +OXYC5SOL19 PO
--- OUTSIDE RECORDS SUMMARY | 2016-10-22 10:11 | XMS REPORT | Continuity of Care Document ---
Author Author [facility] Organization [facility] Address Unknown Phone Unavailable Care Team Providers Care Balance And Hairspring Assembler Name Role Phone SUMAYA WING MD PCP Insurance Providers Payer Name Policy Number Subscriber Name Relationship [employer] [id number] Ana Dinero 16 Self / Same As Patient [facility] [id number] Ana Dinero 16 Self / Same As Patient Advance Directives Directive Response Recorded Date/Time Advance Directives No 03/11/16 9:00am Health Care Power of Fraud Prevention Analyst No 03/11/16 9:00am Organ Donor No 03/11/16 [...] - 99.5) 03/11/2016 12:40pm Temperature (Calculated Celsius) 36.46684 degrees C (36.4 - 37.5) 03/11/2016 12:40pm [...] 7.00 inches 03/11/2016 9:00am Height (Calculated Centimeters) 170.571239 cm 03/11/2016 9:00am Weight (Pounds) 150 pounds 03/11/2016 9:00am Weight (Ounces) 0.0 oz 03/11/2016 9:00am Weight (Calculated Grams) 59353.856 gm 03/11/2016 9:00am Weight (Calculated Kilograms) 68.803689 kilograms 03/11/2016 9:00am Calculated BMI 23.5 03/11/2016 9:00am Results Pending Laboratory Results Test Name Collection Date/Time Procedures Procedure Status Date Provider(s) Excision of lesion Completed 03/11/16 JASPER PERSAUD MD Tracing only of electrocardiogram Active 03/10/16 JASPER PERSAUD MD Encounters Encounter Location Arrival/Admit Date Discharge/Depart Date Attending Provider Departed [facility] 03/11/16 8:47am 12:40pm JASPER PERSAUD MD Departed Clinic [facility] 03/10/16 12:53pm 03/10/16 2: 43pm JASPER PERSAUD MD
[2016-10-22] MEDS: NS 100 ML (IVPB) BAG IV ONE (10:40)
[2016-10-22] MEDS: BARIUM SUSPENSION 2.1% (VANILLA SILQ) 450 ML PO ONE (10:40)
[2016-10-22] MEDS: IOHEXOL 350 MG/ML 100 ML (OMNIPAQUE 350) VIAL IV ONE (10:40)
[2016-10-22] MEDS: CATHETER FLUSH 10 ML SYR IV PRN (10:40)
--- NOTE | 2016-10-22 11:04 | Diagnostic Imaging Report ---
PROCEDURE: CT head with and without contrast. TECHNIQUE: Multiple contiguous axial images were obtained through the brain before and after the administration of intravenous contrast. INDICATION: Lymphoma. 199 mL of Omnipaque 350 administered intravenously. FINDINGS: The unenhanced phase demonstrates no intracranial hemorrhage. The brain parenchyma and ramsey-white matter differentiation is preserved. There is no hydrocephalus. No extra-axial fluid collection is seen. Postcontrast images demonstrate no enhancing mass. IMPRESSION: Unremarkable exam. Dictated by: Dictated on workstation # [id number]
--- NOTE | 2016-10-22 12:33 | Diagnostic Imaging Report ---
CT neck, chest, and abdomen performed with intravenous contrast. INDICATION: Lymphoma. COMPARISON: 06/16/2016, and 03/30/2016, PET/CT. FINDINGS: CT neck: There is interval worsening with development of a large confluent mass in the left neck centered at the region of the level II lymph node station measuring collectively 7.9 x 4.2 x 6.5 cm. This is now contiguous with the soft tissue thickening in the left peritonsillar region. Maximum axial dimensions on the previous study and the best comparable measurements would be 4.8 x 3.6 cm and maximum extension craniocaudally on the previous exam is 4.8 cm. There is central necrosis suggested and a large confluent soft tissue mass. There is left peritonsillar mass more superiorly located which is similar to the previous study. There is soft tissue thickening extending to the left pyriform sinus, at this point, worse compared to the previous study. There is increased mass effect with shift of the midline structures to the right side. There are also other enlarged from lymph nodes most prominent in the supraclavicular region measuring 3.5 x 2.3 cm compared to minimally enlarged nodes at this location previously. There are also other enlarged lymph nodes in stations 3, 4, and 5 have all progressed and developed since the prior exam. There is no discrete lymphadenopathy of significance seen in the right side of the neck. The visualized portions of the paranasal sinuses demonstrate partial opacification of the mastoid air cells on both sides. The osseous structures demonstrate no definite abnormality. CT chest: There is enlargement of a right upper lobe pulmonary nodule with increased surrounding spiculation and increased solid component now measuring 2.3 x 2.0 cm x 2.3 cm craniocaudally. It was about 1.6 cm on the previous exam. There is clear progression with increased solid component and increased nodule mass in this location. While there is resolution of previously seen left basilar atelectasis, more posteriorly there is a new 2-cm nodule seen. More superiorly, there is a 1.4-cm new nodule also noted in the left lower lobe. Background emphysema is seen in the lungs. The jocelyn demonstrate bilateral enlarged lymph nodes that have developed since the prior exam up to 1.8 cm in short axis on the right side and on the left side up to 1.3 cm. The mediastinum also demonstrates progression with development of a right paratracheal 3.5-cm lymph node mass. The axilla demonstrate no lymphadenopathy. The heart size is normal. No pericardial or significant pleural effusion. Minimal left pleural effusion has developed. The osseous structures appear grossly unremarkable. CT abdomen: There is development of a new mass along the medial superior aspect of the left kidney measuring 4.5 x 4.1 x 5.5 cm abutting the lower aspect of the left adrenal gland. There is increased fullness in other small left para-aortic lymph nodes seen. The liver, gallbladder, spleen, pancreas, and right adrenal gland appear grossly unremarkable. The kidneys have symmetric enhancement and contrast excretion with a 2.7-cm simple-appearing cyst in the mid/lower left kidney. The osseous structures appear grossly unremarkable. IMPRESSION: (Significant progression.) CT neck: There is significant enlargement in numerous left cervical and supraclavicular lymph nodes with a confluent large lymph node mass centered at level 2, left cervical region, inseparable from the left tonsillar region. CT chest: 1. Enlarged right upper lobe pulmonary nodule and two new left lower lobe pulmonary nodules. 2. Interval enlargement of right paratracheal and bilateral hilar lymph nodes. CT abdomen: Development of a 5.5-cm mass abutting the medial superior aspect of the left kidney with adjacent slightly prominent left para-aortic lymph nodes compatible with lymphoma. Report was stat faxed to office of Dr. Esther Pham @ 12:32 PM/evelio. Dictated by: Dictated on workstation # [id number]
== END ==
LOC: RAD 10:08
PROVIDERS: ATTEND Internal Medicine Hematology & Oncology
DX: C83.18 Mantle cell lymphoma, lymph nodes of multiple sites (principal)
CPT/HCPCS: 70470; 70491; 71260; 74160

== ENCOUNTER → 2016-10-25 | Outpatient (CLI) | payer MEDICARE, MEDICAID ==
--- OUTSIDE RECORDS SUMMARY | 2016-10-25 13:11 | XMS REPORT | Continuity of Care Document ---
Author Author [facility] Organization [facility] Address Unknown Phone Unavailable Care Team Providers Care Journeyman Electrician Pv Installer Name Role Phone SUMAYA WING MD PCP Insurance Providers Payer Name Policy Number Subscriber Name Relationship W[employer] [id number] Ana Dinero 16 Self / Same As Patient [facility] [id number] Ana Dinero 16 Self / Same As Patient Advance Directives Directive Response Recorded Date/Time Advance Directives No 03/11/16 9:00am Health Care Power of Internet Marketing Assistant No 03/11/16 9:00am Organ Donor No 03/11/16 [...] - 99.5) 03/11/2016 12:40pm Temperature (Calculated Celsius) 36.64149 degrees C (36.4 - 37.5) 03/11/2016 12:40pm [...] 7.00 inches 03/11/2016 9:00am Height (Calculated Centimeters) 170.803375 cm 03/11/2016 9:00am Weight (Pounds) 150 pounds 03/11/2016 9:00am Weight (Ounces) 0.0 oz 03/11/2016 9:00am Weight (Calculated Grams) 08156.856 gm 03/11/2016 9:00am Weight (Calculated Kilograms) 68.100061 kilograms 03/11/2016 9:00am Calculated BMI 23.5 03/11/2016 9:00am Results Pending Laboratory Results Test Name Collection Date/Time Procedures Procedure Status Date Provider(s) Excision of lesion Completed 03/11/16 JASPER PERSAUD MD Tracing only of electrocardiogram Active 03/10/16 JASPER PERSAUD MD Encounters Encounter Location Arrival/Admit Date Discharge/Depart Date Attending Provider Departed [facility] 03/11/16 8:47am 12:40pm JASPER PERSAUD MD Departed Clinic [facility] 03/10/16 12:53pm 03/10/16 2: 43pm JASPER PERSAUD MD
[2016-10-25 13:44] LABS: ANION GAP 12 MMOL/L (5-14); BLOOD UREA NITROGEN 16 MG/DL (7-18); BUN/CREATININE RATIO 17; CALCIUM 9.5 MG/DL (8.5-10.1); CARBON DIOXIDE 25 MMOL/L (21-32); CHLORIDE 99 MMOL/L (98-107); CREATININE SERUM 0.95 MG/DL (0.60-1.30); GFR ESTIMATED > 60; GLUCOSE 98 MG/DL (70-105); POTASSIUM 4.8 MMOL/L (3.6-5.0); SODIUM 136 MMOL/L (135-145)
[2016-10-25 13:54] LABS: DIGOXIN 1.33 NG/ML (0.80-2.00)
== END ==
LOC: LAB 13:07
PROVIDERS: ATTEND Internal Medicine Cardiovascular Disease
DX: Z51.81 Encounter for therapeutic drug level monitoring (principal); Z79.899 Other long term (current) drug therapy
CPT/HCPCS: 36415; 80048; 80162

== ENCOUNTER 2016-10-26 11:00 | Outpatient (CLI) | payer MEDICARE, MEDICAID ==
--- OUTSIDE RECORDS SUMMARY | 2016-10-25 07:52 | XMS REPORT | Continuity of Care Document ---
Author Author [facility] Organization [facility] Address Unknown Phone Unavailable Care Team Providers Care Refrigeration Installer Name Role Phone SUMAYA WING MD PCP Insurance Providers Payer Name Policy Number Subscriber Name Relationship [employer] [id number] Ana Dinero 18 Self / Same As Patient [facility] [id number] Ana Dinero 16 Self / Same As Patient Advance Directives Directive Response Recorded Date/Time Advance Directives No 03/11/16 9:00am Health Care Power of Broadcasting Equipment Mechanic No 03/11/16 9:00am Organ Donor No 03/11/16 [...] - 99.5) 03/11/2016 12:40pm Temperature (Calculated Celsius) 36.26710 degrees C (36.4 - 37.5) 03/11/2016 12:40pm [...] 7.00 inches 03/11/2016 9:00am Height (Calculated Centimeters) 170.821780 cm 03/11/2016 9:00am Weight (Pounds) 150 pounds 03/11/2016 9:00am Weight (Ounces) 0.0 oz 03/11/2016 9:00am Weight (Calculated Grams) 39017.856 gm 03/11/2016 9:00am Weight (Calculated Kilograms) 68.128582 kilograms 03/11/2016 9:00am Calculated BMI 23.5 03/11/2016 9:00am Results Pending Laboratory Results Test Name Collection Date/Time Procedures Procedure Status Date Provider(s) Excision of lesion Completed 03/11/16 JASPER PERSAUD MD Tracing only of electrocardiogram Active 03/10/16 JASPER PERSAUD MD Encounters Encounter Location Arrival/Admit Date Discharge/Depart Date Attending Provider Departed [facility] 03/11/16 8:47am 12:40pm JASPER PERSAUD MD Departed Clinic [facility] 03/10/16 12:53pm 03/10/16 2: 43pm JASPER PERSAUD MD
[~2016-10-26] VITALS: Ht 170.2 cm; Wt 58.1 kg
[~2016-10-26 11:00] MED LIST changes: -CHEMO PO; -HYDR-3820 PO
--- OUTSIDE RECORDS SUMMARY | 2016-10-26 11:44 | XMS REPORT | Continuity of Care Document ---
Author Author [facility] Organization [facility] Address Unknown Phone Unavailable Care Team Providers Care Spreading Machine Operator Name Role Phone SUMAYA WING MD PCP Insurance Providers Payer Name Policy Number Subscriber Name Relationship [employer] [id number] Ana Dinero 16 Self / Same As Patient [facility] [id number] Ana Dinero 16 Self / Same As Patient Advance Directives Directive Response Recorded Date/Time Advance Directives No 03/11/16 9:00am Health Care Power of Cyber Legal Advisor No 03/11/16 9:00am Organ Donor No 03/11/16 [...] - 99.5) 03/11/2016 12:40pm Temperature (Calculated Celsius) 36.15894 degrees C (36.4 - 37.5) 03/11/2016 12:40pm [...] 7.00 inches 03/11/2016 9:00am Height (Calculated Centimeters) 170.631230 cm 03/11/2016 9:00am Weight (Pounds) 150 pounds 03/11/2016 9:00am Weight (Ounces) 0.0 oz 03/11/2016 9:00am Weight (Calculated Grams) 44490.856 gm 03/11/2016 9:00am Weight (Calculated Kilograms) 68.737228 kilograms 03/11/2016 9:00am Calculated BMI 23.5 03/11/2016 [...]
[2016-10-26] MEDS ORDERED: HYDR-3820 PO (12:25)
[2016-10-26] MEDS ORDERED: HYDR-3812 PO (12:30)
== END 2016-10-26 12:38 ==
LOC: PREOP 11:00
PROVIDERS: ATTEND Otolaryngology Otolaryngology/Facial Plastic Surgery
DX: Z01.818 Encounter for other preprocedural examination (principal); R59.0 Localized enlarged lymph nodes; Z85.72 Personal history of non-Hodgkin lymphomas

== ENCOUNTER 2016-10-29 08:16 | Day surgery (SDC) | payer MEDICARE, MEDICAID ==
[~2016-10-29] VITALS: Ht 170.2 cm; Wt 58.1 kg
[~2016-10-29 08:16] MED LIST changes: +HYDR-3820 PO
--- OUTSIDE RECORDS SUMMARY | 2016-10-29 08:22 | XMS REPORT | Continuity of Care Document ---
Author Author [facility] Organization [facility] Address Unknown Phone Unavailable Care Team Providers Care Visiting Professor Name Role Phone SUMAYA WING MD PCP Insurance Providers Payer Name Policy Number Subscriber Name Relationship W[employer] Medicare [id number] Ana Dinero 16 Self / Same As Patient [facility] [id number] Ana Dinero 16 Self / Same As Patient Advance Directives Directive Response Recorded Date/Time Advance Directives No 03/11/16 9:00am Health Care Power of Electric Motor Control Assembler No 03/11/16 9:00am Organ Donor No 03/11/16 [...] - 99.5) 03/11/2016 12:40pm Temperature (Calculated Celsius) 36.62601 degrees C (36.4 - 37.5) 03/11/2016 12:40pm [...] 7.00 inches 03/11/2016 9:00am Height (Calculated Centimeters) 170.781460 cm 03/11/2016 9:00am Weight (Pounds) 150 pounds 03/11/2016 9:00am Weight (Ounces) 0.0 oz 03/11/2016 9:00am Weight (Calculated Grams) 96750.856 gm 03/11/2016 9:00am Weight (Calculated Kilograms) 68.838221 kilograms 03/11/2016 9:00am Calculated BMI 23.5 03/11/2016 9:00am Results Pending Laboratory Results Test Name Collection Date/Time Procedures Procedure Status Date Provider(s) Excision of lesion Completed 03/11/16 JASPER PERSAUD MD Tracing only of electrocardiogram Active 03/10/16 JASPER PERSAUD MD Encounters Encounter Location Arrival/Admit Date Discharge/Depart Date Attending Provider Departed [facility] 03/11/16 8:47am 12:40pm JASPER PERSAUD MD Departed Clinic [facility] 03/10/16 12:53pm 03/10/16 2: 43pm JASPER PERSAUD MD
--- OUTSIDE RECORDS SUMMARY | 2016-10-29 08:22 | XMS REPORT | Continuity of Care Document ---
Author Author [facility] Organization [facility] Address Unknown Phone Unavailable Care Team Providers Care Procurement Professional Logistics Name Role Phone SUMAYA WING MD PCP Insurance Providers Payer Name Policy Number Subscriber Name Relationship W[employer] Medicare [id number] Ana Dinero 16 Self / Same As Patient [facility] [id number] Ana Dinero 16 Self / Same As Patient Advance Directives Directive Response Recorded Date/Time Advance Directives No 03/11/16 9:00am Health Care Power of Healthcare Customer Service No 03/11/16 9:00am Organ Donor No 03/11/16 [...] - 99.5) 03/11/2016 12:40pm Temperature (Calculated Celsius) 36.34115 degrees C (36.4 - 37.5) 03/11/2016 12:40pm [...] 7.00 inches 03/11/2016 9:00am Height (Calculated Centimeters) 170.294114 cm 03/11/2016 9:00am Weight (Pounds) 150 pounds 03/11/2016 9:00am Weight (Ounces) 0.0 oz 03/11/2016 9:00am Weight (Calculated Grams) 60162.856 gm 03/11/2016 9:00am Weight (Calculated Kilograms) 68.568755 kilograms 03/11/2016 9:00am Calculated BMI 23.5 03/11/2016 9:00am Results Pending Laboratory Results Test Name Collection Date/Time Procedures Procedure Status Date Provider(s) Excision of lesion Completed 03/11/16 JASPER PERSAUD MD Tracing only of electrocardiogram Active 03/10/16 JASPER PERSAUD MD Encounters Encounter Location Arrival/Admit Date Discharge/Depart Date Attending Provider Departed [facility] 03/11/16 8:47am 12:40pm JASPER PERSAUD MD Departed Clinic [facility] 03/10/16 12:53pm 03/10/16 2: 43pm JASPER PERSAUD MD
[2016-10-29] MEDS ORDERED: FAMOTIDINE 20MG/2ML IV (PEPCID) ONE (08:51)
[2016-10-29] MEDS ORDERED: LACTATED RINGERS 1,000 ML IV PRN ×2 (09:14→10:53)
[2016-10-29] MEDS ORDERED: FAMOTIDINE 20MG/2ML IV (PEPCID) IV ONE ×2 (09:15→11:00)
[2016-10-29 09:21] VITALS: BP 112/88
[2016-10-29] MEDS ORDERED: CHEMO PO (09:21)
[2016-10-29] MEDS ORDERED: MIDAZOLAM 2 MG/2 ML (VERSED) VIAL ONE (10:44)
[2016-10-29] MEDS ORDERED: ONDANSETRON 4 MG/2 ML (SDV) Z0FRAN ONE (11:01)
[2016-10-29] MEDS ORDERED: LACTATED RINGERS 1,000 ML IV ONE (11:01)
[2016-10-29] MEDS ORDERED: proPOfol 200 MG/20 ML (DIPRIVAN) VIAL IV ONE (11:01)
[2016-10-29] MEDS ORDERED: LIDOCAINE PF 2% 10 ML (XYLOCAINE) AMP ONE (11:01)
[2016-10-29] MEDS ORDERED: SEVOFLURANE (ULTANE) 15 ML INHAL SOLN ONE ×5 (11:02→12:49)
[2016-10-29] MEDS ORDERED: fentaNYL INJECTION 100 MCG/2 ML AMP ONE (11:02)
[2016-10-29] MEDS ORDERED: LIDOCAINE/EPI 1%-1:100,000 (XYLOCAINE) 20ML ONE (11:14)
[2016-10-29] MEDS ORDERED: MUPIROCIN 2% OINT 22 GM (BACTROBAN) TUBE ONE (11:14)
--- NOTE | 2016-10-29 11:35 | Progress Note-Pre Operative ---
Pre-Operative Progress Note H&P Reviewed The H&P was reviewed, patient examined and no changes noted. Date H&P Reviewed: Oct 29, 2016 Time H&P Reviewed: 11:30 Pre-Operative Diagnosis: Persistent cervicval adenopathy-history of mantle cell lymphoma JASPER PERSAUD MD Oct 29, 2016 11:35 am
--- NOTE | 2016-10-29 12:54 | Progress Note-Post Operative ---
Post-Operative Progess Note Pre-Operative Diagnosis Persistent cervicval adenopathy-history of mantle cell lymphoma Post-Operative Diagnosis same Post-Op Procedure Note Date of Procedure: Oct 29, 2016 Name of Procedure: Excisional Biopsies of Left CErvical Lymph Nodes Anesthesia Type gen mcgowan Estimated blood loss (mL): 25cc Specimen(s) collected left preaucricular lymph node and left posterior cervical lymph node for pathology-flow and caris testing JASPER PERSAUD MD Oct 29, 2016 12:54 pm
[2016-10-29] MEDS ORDERED: MEPERIDINE (DEMEROL) INJ 50 MG/ML IVP PRN (13:00)
[2016-10-29] MEDS ORDERED: ACETAMINOPHEN 325 MG TABLET/CAPLET (TYLENOL) PO PRN (13:00)
[2016-10-29] MEDS ORDERED: morphine INJ 10 MG/ML 1ML (SYR OR VIAL) IVP PRN (13:00)
[2016-10-29] MEDS ORDERED: LABETALOL HCL 20 MG/4 ML VIAL IV ONE (13:00)
[2016-10-29] MEDS ORDERED: ONDANSETRON 4 MG/2 ML (SDV) Z0FRAN IVP PRN (13:00)
[2016-10-29] MEDS ORDERED: HYDROcodone/APAP 5 MG/325 MG (LORTAB) TAB PO PRN (13:00)
[2016-10-29] MEDS ORDERED: MEPERIDINE (DEMEROL) INJ 50 MG/ML ONE (13:11)
[2016-10-29 13:50] VITALS: BP 106/58
[2016-10-29 14:20] VITALS: BP 107/66
[2016-10-29] MEDS ORDERED: HYDR-3812 PO (14:23)
[2016-10-29 14:50] VITALS: BP 99/63
[2016-10-29 15:00] VITALS: BP 99/63
== END 2016-10-29 15:00 | disposition home or self-care (01) ==
LOC: SDC 08:16
PROVIDERS: ATTEND Otolaryngology Otolaryngology/Facial Plastic Surgery
DX: C83.11 Mantle cell lymphoma, lymph nodes of head, face, and neck (principal); C83.31 Diffuse large B-cell lymphoma, lymph nodes of head, face, and neck
CPT/HCPCS: 87081; 88184; 88185; 88342; 88368; 88369

== ENCOUNTER 2016-11-16 13:06 | Outpatient (RCR) | payer MEDICARE, MEDICAID ==
--- OUTSIDE RECORDS SUMMARY | 2016-08-25 14:18 | XMS REPORT | Continuity of Care Document ---
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 Role Phone SUMAYA WING MD PCP Insurance Providers Payer Name Policy Number Subscriber Name Relationship [employer] [id number] Ana Dinero 18 Self / Same As Patient [facility] [id number] Ana Dinero 16 Self / Same As Patient Advance Directives Directive Response Recorded Date/Time Advance Directives No 03/11/16 9:00am Health Care Power of Medical Research Tech No 03/11/16 9:00am Organ Donor No 03/11/16 [...] - 99.5) 03/11/2016 12:40pm Temperature (Calculated Celsius) 36.30895 degrees C (36.4 - 37.5) 03/11/2016 12:40pm [...] 7.00 inches 03/11/2016 9:00am Height (Calculated Centimeters) 170.396400 cm 03/11/2016 9:00am Weight (Pounds) 150 pounds 03/11/2016 9:00am Weight (Ounces) 0.0 oz 03/11/2016 9:00am Weight (Calculated Grams) 37403.856 gm 03/11/2016 9:00am Weight (Calculated Kilograms) 68.489280 kilograms 03/11/2016 9:00am Calculated BMI 23.5 03/11/2016 9:00am Results Pending Laboratory Results Test Name Collection Date/Time Procedures Procedure Status Date Provider(s) Excision of lesion Completed 03/11/16 JASPER PERSAUD MD Tracing only of electrocardiogram Active 03/10/16 JASPER PERSAUD MD Encounters Encounter Location Arrival/Admit Date Discharge/Depart Date Attending Provider Departed [facility] 03/11/16 8:47am 12:40pm JASPER PERSAUD MD Departed Clinic [facility] 03/10/16 12:53pm 03/10/16 2: 43pm JASPER PERSAUD MD
[2016-09-06 14:03] LABS: BASOPHILS % (AUTO) 0 % (0-10); EOSINOPHILS % (AUTO) 0 % (0-10); LYMPHOCYTES # (AUTO) 0.5 X 10^3 (1.0-4.0); LYMPHOCYTES % (AUTO) 7 % (12-44); MEAN CORPUSCULAR HEMOGLOBIN 28 PG (25-34); MEAN CORPUSCULAR HGB CONC 32 G/DL (32-36); MEAN CORPUSCULAR VOLUME 87 FL (80-99); MEAN PLATELET VOLUME 9.2 FL (7.4-10.4); MONOCYTES # (AUTO) 0.7 X 10^3 (0.0-1.0); MONOCYTES % (AUTO) 10 % (0-12); NEUTROPHILS % (AUTO) 83 % (42-75); PLATELET COUNT 185 10^3/uL (130-400); RED BLOOD COUNT 3.68 10^6/uL (4.35-5.85); RED CELL DISTRIBUTION WIDTH 19.3 % (10.0-14.5); WHITE BLOOD COUNT 7.2 10^3/uL (4.3-11.0)
[2016-09-06 14:33] LABS: ALANINE AMINOTRANSFERASE 16 U/L (0-55); ALBUMIN 3.2 G/DL (3.2-4.5); ANION GAP 9 MMOL/L (5-14); ASPARTATE AMINO TRANSFERASE 21 U/L (5-34); BILIRUBIN,TOTAL 0.4 MG/DL (0.1-1.0); BLOOD UREA NITROGEN 24 MG/DL (7-18); BUN/CREATININE RATIO 22; CALCIUM 9.3 MG/DL (8.5-10.1); CARBON DIOXIDE 27 MMOL/L (21-32); CHLORIDE 101 MMOL/L (98-107); GFR ESTIMATED > 60; GLUCOSE 137 MG/DL (70-105); POTASSIUM 4.2 MMOL/L (3.6-5.0); SODIUM 137 MMOL/L (135-145); TOTAL PROTEIN 5.8 G/DL (6.4-8.2)
[2016-09-13 13:53] LABS: BASOPHILS % (AUTO) 0 % (0-10); EOSINOPHILS % (AUTO) 1 % (0-10); LYMPHOCYTES # (AUTO) 0.7 X 10^3 (1.0-4.0); LYMPHOCYTES % (AUTO) 16 % (12-44); MEAN CORPUSCULAR HEMOGLOBIN 28 PG (25-34); MEAN CORPUSCULAR HGB CONC 32 G/DL (32-36); MEAN CORPUSCULAR VOLUME 88 FL (80-99); MEAN PLATELET VOLUME 9.4 FL (7.4-10.4); MONOCYTES # (AUTO) 0.5 X 10^3 (0.0-1.0); MONOCYTES % (AUTO) 12 % (0-12); NEUTROPHILS # (AUTO) 3.2 X 10^3 (1.8-7.8); NEUTROPHILS % (AUTO) 71 % (42-75); PLATELET COUNT 157 10^3/uL (130-400); RED BLOOD COUNT 3.73 10^6/uL (4.35-5.85); RED CELL DISTRIBUTION WIDTH 19.4 % (10.0-14.5); WHITE BLOOD COUNT 4.5 10^3/uL (4.3-11.0)
[2016-09-13 15:05] LABS: ALANINE AMINOTRANSFERASE 15 U/L (0-55); ALBUMIN 3.4 G/DL (3.2-4.5); ANION GAP 10 MMOL/L (5-14); ASPARTATE AMINO TRANSFERASE 20 U/L (5-34); BILIRUBIN,TOTAL 0.5 MG/DL (0.1-1.0); BLOOD UREA NITROGEN 14 MG/DL (7-18); BUN/CREATININE RATIO 15; CALCIUM 9.2 MG/DL (8.5-10.1); CARBON DIOXIDE 26 MMOL/L (21-32); CHLORIDE 104 MMOL/L (98-107); CREATININE SERUM 0.91 MG/DL (0.60-1.30); GFR ESTIMATED > 60; GLUCOSE 89 MG/DL (70-105); POTASSIUM 5.4 MMOL/L (3.6-5.0); SODIUM 140 MMOL/L (135-145); TOTAL PROTEIN 5.8 G/DL (6.4-8.2)
[2016-09-20 13:18] LABS: BASOPHILS % (AUTO) 0 % (0-10); EOSINOPHILS % (AUTO) 1 % (0-10); LYMPHOCYTES % (AUTO) 30 % (12-44); MEAN CORPUSCULAR HEMOGLOBIN 29 PG (25-34); MEAN CORPUSCULAR HGB CONC 32 G/DL (32-36); MEAN CORPUSCULAR VOLUME 89 FL (80-99); MEAN PLATELET VOLUME 9.4 FL (7.4-10.4); MONOCYTES # (AUTO) 0.6 X 10^3 (0.0-1.0); MONOCYTES % (AUTO) 19 % (0-12); NEUTROPHILS # (AUTO) 1.6 X 10^3 (1.8-7.8); NEUTROPHILS % (AUTO) 50 % (42-75); PLATELET COUNT 168 10^3/uL (130-400); RED BLOOD COUNT 3.75 10^6/uL (4.35-5.85); WHITE BLOOD COUNT 3.2 10^3/uL (4.3-11.0)
[2016-09-20 14:28] LABS: ALANINE AMINOTRANSFERASE 11 U/L (0-55); ALBUMIN 3.5 G/DL (3.2-4.5); ANION GAP 11 MMOL/L (5-14); ASPARTATE AMINO TRANSFERASE 18 U/L (5-34); BILIRUBIN,TOTAL 0.3 MG/DL (0.1-1.0); BLOOD UREA NITROGEN 15 MG/DL (7-18); BUN/CREATININE RATIO 14; CALCIUM 9.2 MG/DL (8.5-10.1); CARBON DIOXIDE 26 MMOL/L (21-32); CHLORIDE 103 MMOL/L (98-107); CREATININE SERUM 1.05 MG/DL (0.60-1.30); GFR ESTIMATED > 60; GLUCOSE 143 MG/DL (70-105); POTASSIUM 5.2 MMOL/L (3.6-5.0); SODIUM 140 MMOL/L (135-145); TOTAL PROTEIN 5.9 G/DL (6.4-8.2)
[2016-09-27 13:34] LABS: BASOPHILS % (AUTO) 0 % (0-10); EOSINOPHILS # (AUTO) 0.1 10^3/uL (0.0-0.3); EOSINOPHILS % (AUTO) 1 % (0-10); LYMPHOCYTES # (AUTO) 1.4 X 10^3 (1.0-4.0); LYMPHOCYTES % (AUTO) 31 % (12-44); MEAN CORPUSCULAR HEMOGLOBIN 28 PG (25-34); MEAN CORPUSCULAR HGB CONC 32 G/DL (32-36); MEAN CORPUSCULAR VOLUME 89 FL (80-99); MEAN PLATELET VOLUME 9.3 FL (7.4-10.4); MONOCYTES # (AUTO) 0.8 X 10^3 (0.0-1.0); MONOCYTES % (AUTO) 17 % (0-12); NEUTROPHILS # (AUTO) 2.3 X 10^3 (1.8-7.8); NEUTROPHILS % (AUTO) 50 % (42-75); PLATELET COUNT 157 10^3/uL (130-400); RED BLOOD COUNT 3.59 10^6/uL (4.35-5.85); RED CELL DISTRIBUTION WIDTH 18.4 % (10.0-14.5); WHITE BLOOD COUNT 4.5 10^3/uL (4.3-11.0)
[2016-09-27 14:50] LABS: ALANINE AMINOTRANSFERASE 11 U/L (0-55); ALBUMIN 3.5 G/DL (3.2-4.5); ANION GAP 9 MMOL/L (5-14); ASPARTATE AMINO TRANSFERASE 19 U/L (5-34); BILIRUBIN,TOTAL 0.3 MG/DL (0.1-1.0); BLOOD UREA NITROGEN 21 MG/DL (7-18); BUN/CREATININE RATIO 24; CARBON DIOXIDE 29 MMOL/L (21-32); CHLORIDE 101 MMOL/L (98-107); CREATININE SERUM 0.89 MG/DL (0.60-1.30); GFR ESTIMATED > 60; GLUCOSE 112 MG/DL (70-105); POTASSIUM 4.8 MMOL/L (3.6-5.0); SODIUM 139 MMOL/L (135-145)
[2016-09-27 15:10] LABS: THYROID STIMULATING HORMONE 0.57 UIU/ML (0.35-4.94)
[2016-10-05 09:47] LABS: BASOPHILS % (AUTO) 0 % (0-10); EOSINOPHILS % (AUTO) 1 % (0-10); LYMPHOCYTES # (AUTO) 1.5 X 10^3 (1.0-4.0); LYMPHOCYTES % (AUTO) 35 % (12-44); MEAN CORPUSCULAR HGB CONC 33 G/DL (32-36); MEAN CORPUSCULAR VOLUME 88 FL (80-99); MEAN PLATELET VOLUME 9.6 FL (7.4-10.4); MONOCYTES # (AUTO) 0.4 X 10^3 (0.0-1.0); MONOCYTES % (AUTO) 10 % (0-12); NEUTROPHILS # (AUTO) 2.3 X 10^3 (1.8-7.8); NEUTROPHILS % (AUTO) 54 % (42-75); PLATELET COUNT 199 10^3/uL (130-400); WHITE BLOOD COUNT 4.3 10^3/uL (4.3-11.0)
[2016-10-05 09:50] LABS: MEAN CORPUSCULAR HEMOGLOBIN 29 PG (25-34)
[2016-10-05 10:18] LABS: ALANINE AMINOTRANSFERASE 11 U/L (0-55); ALBUMIN 3.8 G/DL (3.2-4.5); ANION GAP 12 MMOL/L (5-14); ASPARTATE AMINO TRANSFERASE 20 U/L (5-34); BILIRUBIN,TOTAL 0.4 MG/DL (0.1-1.0); BLOOD UREA NITROGEN 15 MG/DL (7-18); BUN/CREATININE RATIO 15; CALCIUM 9.6 MG/DL (8.5-10.1); CARBON DIOXIDE 25 MMOL/L (21-32); CHLORIDE 102 MMOL/L (98-107); CREATININE SERUM 0.99 MG/DL (0.60-1.30); GFR ESTIMATED > 60; GLUCOSE 137 MG/DL (70-105); LACTATE DEHYDROGENASE 285 U/L (125-220); SODIUM 139 MMOL/L (135-145); TOTAL PROTEIN 6.4 G/DL (6.4-8.2)
[2016-10-05 10:40] LABS: THYROID STIMULATING HORMONE 0.66 UIU/ML (0.35-4.94)
[2016-10-19 09:40] LABS: BASOPHILS % (AUTO) 0 % (0-10); EOSINOPHILS % (AUTO) 1 % (0-10); LYMPHOCYTES # (AUTO) 0.7 X 10^3 (1.0-4.0); LYMPHOCYTES % (AUTO) 11 % (12-44); MEAN CORPUSCULAR HEMOGLOBIN 30 PG (25-34); MEAN CORPUSCULAR HGB CONC 34 G/DL (32-36); MEAN CORPUSCULAR VOLUME 88 FL (80-99); MEAN PLATELET VOLUME 9.3 FL (7.4-10.4); MONOCYTES # (AUTO) 0.9 X 10^3 (0.0-1.0); MONOCYTES % (AUTO) 13 % (0-12); NEUTROPHILS # (AUTO) 5.3 X 10^3 (1.8-7.8); NEUTROPHILS % (AUTO) 76 % (42-75); PLATELET COUNT 199 10^3/uL (130-400); RED BLOOD COUNT 3.67 10^6/uL (4.35-5.85); RED CELL DISTRIBUTION WIDTH 17.2 % (10.0-14.5)
[2016-10-19 10:19] LABS: ALANINE AMINOTRANSFERASE 11 U/L (0-55); ALBUMIN 3.7 G/DL (3.2-4.5); ANION GAP 13 MMOL/L (5-14); ASPARTATE AMINO TRANSFERASE 22 U/L (5-34); BILIRUBIN,TOTAL 0.4 MG/DL (0.1-1.0); BLOOD UREA NITROGEN 15 MG/DL (7-18); BUN/CREATININE RATIO 17; CALCIUM 9.3 MG/DL (8.5-10.1); CARBON DIOXIDE 25 MMOL/L (21-32); CHLORIDE 95 MMOL/L (98-107); CREATININE SERUM 0.87 MG/DL (0.60-1.30); GFR ESTIMATED > 60; GLUCOSE 113 MG/DL (70-105); LACTATE DEHYDROGENASE 512 U/L (125-220); SODIUM 133 MMOL/L (135-145); TOTAL PROTEIN 6.1 G/DL (6.4-8.2)
[2016-10-25 13:13] LABS: BASOPHILS % (AUTO) 0 % (0-10); EOSINOPHILS # (AUTO) 0.1 10^3/uL (0.0-0.3); EOSINOPHILS % (AUTO) 1 % (0-10); LYMPHOCYTES # (AUTO) 1.5 X 10^3 (1.0-4.0); LYMPHOCYTES % (AUTO) 22 % (12-44); MEAN CORPUSCULAR HEMOGLOBIN 29 PG (25-34); MEAN CORPUSCULAR HGB CONC 32 G/DL (32-36); MEAN CORPUSCULAR VOLUME 90 FL (80-99); MEAN PLATELET VOLUME 9.4 FL (7.4-10.4); MONOCYTES # (AUTO) 0.9 X 10^3 (0.0-1.0); MONOCYTES % (AUTO) 13 % (0-12); NEUTROPHILS # (AUTO) 4.2 X 10^3 (1.8-7.8); NEUTROPHILS % (AUTO) 63 % (42-75); PLATELET COUNT 208 10^3/uL (130-400); RED BLOOD COUNT 3.81 10^6/uL (4.35-5.85); RED CELL DISTRIBUTION WIDTH 16.9 % (10.0-14.5); WHITE BLOOD COUNT 6.6 10^3/uL (4.3-11.0)
[2016-11-02 09:48] LABS: BASOPHILS % (AUTO) 0 % (0-10); EOSINOPHILS # (AUTO) 0.1 10^3/uL (0.0-0.3); EOSINOPHILS % (AUTO) 1 % (0-10); LYMPHOCYTES # (AUTO) 1.7 X 10^3 (1.0-4.0); LYMPHOCYTES % (AUTO) 29 % (12-44); MEAN CORPUSCULAR HEMOGLOBIN 29 PG (25-34); MEAN CORPUSCULAR HGB CONC 32 G/DL (32-36); MEAN CORPUSCULAR VOLUME 91 FL (80-99); MEAN PLATELET VOLUME 10.1 FL (7.4-10.4); MONOCYTES # (AUTO) 0.7 X 10^3 (0.0-1.0); MONOCYTES % (AUTO) 12 % (0-12); NEUTROPHILS # (AUTO) 3.4 X 10^3 (1.8-7.8); NEUTROPHILS % (AUTO) 59 % (42-75); PLATELET COUNT 166 10^3/uL (130-400); RED BLOOD COUNT 4.09 10^6/uL (4.35-5.85); RED CELL DISTRIBUTION WIDTH 16.2 % (10.0-14.5); WHITE BLOOD COUNT 5.8 10^3/uL (4.3-11.0)
[2016-11-02 10:32] LABS: ALANINE AMINOTRANSFERASE 11 U/L (0-55); ALBUMIN 3.6 G/DL (3.2-4.5); ANION GAP 12 MMOL/L (5-14); ASPARTATE AMINO TRANSFERASE 24 U/L (5-34); BILIRUBIN,TOTAL 0.4 MG/DL (0.1-1.0); BLOOD UREA NITROGEN 12 MG/DL (7-18); BUN/CREATININE RATIO 13; CALCIUM 9.6 MG/DL (8.5-10.1); CARBON DIOXIDE 25 MMOL/L (21-32); CHLORIDE 105 MMOL/L (98-107); CREATININE SERUM 0.89 MG/DL (0.60-1.30); GFR ESTIMATED > 60; GLUCOSE 122 MG/DL (70-105); LACTATE DEHYDROGENASE 611 U/L (125-220); POTASSIUM 4.6 MMOL/L (3.6-5.0); SODIUM 142 MMOL/L (135-145); TOTAL PROTEIN 6.1 G/DL (6.4-8.2)
[2016-11-08 13:04] LABS: BASOPHILS % (AUTO) 0 % (0-10); EOSINOPHILS # (AUTO) 0.1 10^3/uL (0.0-0.3); EOSINOPHILS % (AUTO) 1 % (0-10); LYMPHOCYTES # (AUTO) 1.5 X 10^3 (1.0-4.0); LYMPHOCYTES % (AUTO) 26 % (12-44); MEAN CORPUSCULAR HEMOGLOBIN 30 PG (25-34); MEAN CORPUSCULAR HGB CONC 33 G/DL (32-36); MEAN CORPUSCULAR VOLUME 92 FL (80-99); MONOCYTES # (AUTO) 0.8 X 10^3 (0.0-1.0); MONOCYTES % (AUTO) 13 % (0-12); NEUTROPHILS # (AUTO) 3.5 X 10^3 (1.8-7.8); NEUTROPHILS % (AUTO) 60 % (42-75); PLATELET COUNT 152 10^3/uL (130-400); RED BLOOD COUNT 3.67 10^6/uL (4.35-5.85); RED CELL DISTRIBUTION WIDTH 16.2 % (10.0-14.5); WHITE BLOOD COUNT 5.9 10^3/uL (4.3-11.0)
[2016-11-08 13:41] LABS: ALANINE AMINOTRANSFERASE 10 U/L (0-55); ALBUMIN 3.4 G/DL (3.2-4.5); ANION GAP 10 MMOL/L (5-14); ASPARTATE AMINO TRANSFERASE 17 U/L (5-34); BILIRUBIN,TOTAL 0.3 MG/DL (0.1-1.0); BLOOD UREA NITROGEN 13 MG/DL (7-18); BUN/CREATININE RATIO 15; CALCIUM 9.1 MG/DL (8.5-10.1); CARBON DIOXIDE 27 MMOL/L (21-32); CHLORIDE 103 MMOL/L (98-107); CREATININE SERUM 0.85 MG/DL (0.60-1.30); GFR ESTIMATED > 60; GLUCOSE 125 MG/DL (70-105); LACTATE DEHYDROGENASE 404 U/L (125-220); POTASSIUM 4.6 MMOL/L (3.6-5.0); SODIUM 140 MMOL/L (135-145); TOTAL PROTEIN 5.7 G/DL (6.4-8.2)
[~2016-11-16 13:06] MED LIST changes: +CHEMO PO; +FLUCONAZOLE 100 MG/50 ML 50 ML IV SCH; +NS IV 1000 ML (CANCER CTR) 0 ML ONE; +NS IV 1000 ML (CANCER CTR) 1,000 ML ONE
[2016-11-16 13:42] LABS: BASOPHILS % (AUTO) 0 % (0-10); EOSINOPHILS % (AUTO) 0 % (0-10); LYMPHOCYTES % (AUTO) 32 % (12-44); MEAN CORPUSCULAR HEMOGLOBIN 30 PG (25-34); MEAN CORPUSCULAR HGB CONC 33 G/DL (32-36); MEAN CORPUSCULAR VOLUME 91 FL (80-99); MEAN PLATELET VOLUME 10.9 FL (7.4-10.4); MONOCYTES # (AUTO) 0.8 X 10^3 (0.0-1.0); MONOCYTES % (AUTO) 13 % (0-12); NEUTROPHILS # (AUTO) 3.4 X 10^3 (1.8-7.8); NEUTROPHILS % (AUTO) 54 % (42-75); PLATELET COUNT 175 10^3/uL (130-400); RED BLOOD COUNT 4.05 10^6/uL (4.35-5.85); WHITE BLOOD COUNT 6.3 10^3/uL (4.3-11.0)
[2016-11-16 14:44] LABS: ALANINE AMINOTRANSFERASE 10 U/L (0-55); ALBUMIN 3.6 G/DL (3.2-4.5); ANION GAP 11 MMOL/L (5-14); ASPARTATE AMINO TRANSFERASE 26 U/L (5-34); BILIRUBIN,TOTAL 0.4 MG/DL (0.1-1.0); BLOOD UREA NITROGEN 17 MG/DL (7-18); BUN/CREATININE RATIO 19; CALCIUM 9.6 MG/DL (8.5-10.1); CARBON DIOXIDE 27 MMOL/L (21-32); CHLORIDE 103 MMOL/L (98-107); CREATININE SERUM 0.91 MG/DL (0.60-1.30); GFR ESTIMATED > 60; GLUCOSE 98 MG/DL (70-105); LACTATE DEHYDROGENASE 682 U/L (125-220); POTASSIUM 4.9 MMOL/L (3.6-5.0); SODIUM 141 MMOL/L (135-145); TOTAL PROTEIN 5.9 G/DL (6.4-8.2)
== END 2016-11-23 | disposition home or self-care (01) ==
LOC: ONC 13:06
PROVIDERS: ATTEND Internal Medicine Hematology & Oncology
DX: Z51.0 Encounter for antineoplastic radiation therapy (principal); C83.11 Mantle cell lymphoma, lymph nodes of head, face, and neck; C44.320 Squamous cell carcinoma of skin of unspecified parts of face; D63.0 Anemia in neoplastic disease; F17.210 Nicotine dependence, cigarettes, uncomplicated; I25.10 Atherosclerotic heart disease of native coronary artery without angina pectoris; Z95.5 Presence of coronary angioplasty implant and graft; Z79.899 Other long term (current) drug therapy
CPT/HCPCS: 36415; 36591; 77336; 77386; 80053; 82728; 83540; 83615; 84443; 85025; 96361; 96365; 99213